=== PATIENT | female | born 1955 | race Caucasian/White ===

== ENCOUNTER → 2016-03-19 | Outpatient (CLI) | payer BC ==
[~2016-03-19] MED LIST: ACYC800T PO; APIX5TAB PO; ASP81CT PO; BUME2TAB3 PO; CARV3.122 PO; CEFU250T80 PO; CITA10TA7 PO; DOCU-143 PO; ESTR1TAB19 PO; FAMO20TA5 PO; FURO20TA4 PO; FURO40TA4 PO; HORMONE MED; LORA0.5T PO; MELA5CAP PO; MICA50VI IV; OMEP40CA36 PO; ONDA4TAB10 PO; PANT40TA3 PO; POSA100T PO; POTA-51 PO; POTA20TA15 PO; PROC-1 PO; PROC10TA PO; SENN-140 PO; SPIR25TA3 PO
--- OUTSIDE RECORDS SUMMARY | 2016-03-19 17:37 | XMS REPORT | Continuity of Care Document ---
Author Author [facility] Organization [facility] Address Unknown Phone Unavailable Care Team Providers Care Donation Worker Name Role Phone Anuradha Schulte PCP [phone] Source Comments Some departments are not documenting in the electronic medical record. If you do not see the information that you expected, contact Release of Information in the Health Information Management department at [phone] for further assistance in locating additional records.[facility] Active Allergies and Adverse Reactions Allergen Noted Date Severity Reactions Comments Clarithromycin 08/18/2015 Medium RASH Patient reports she was on Clarithro, tetracycline, flagyl for infectious colitis >1 year prior and developed a rash. Usure which antibiotic was the cause. Flagyl 08/18/2015 Medium RASH Patient reports she was on Clarithro, tetracycline, flagyl for infectious colitis >1 year prior and developed a rash. Usure which antibiotic was the cause. Tetracycline 08/18/2015 Medium RASH Patient reports she was on Clarithro, tetracycline, flagyl for infectious colitis >1 year prior and developed a rash. Usure which antibiotic was the cause. Triamcinolone 10/21/2015 Medium RASH Zosyn 09/13/2015 Medium RASH Pt developed a diffuse morbilliform rash on chest/abdomen/back/extrem ities (observed 08/30/15). It resolved following d/c of zosyn. Meropenem was tolerated without difficulty. Current Medications Prescription Sig. Disp. Refills Start End Date Status Date carvedilol (COREG) 3.125 Take 1 Tab by mouth twice 60 Tab 5 09/13/19 Active mg tablet daily. Take with food. [address] Take 1 Tab by mouth 30 Tab 3 09/13/19 Active (PROTONIX) 40 mg tablet daily. 16 LORazepam (ATIVAN) 0.5 mg Take 1 Tab by mouth at 30 Tab 0 10/10/19 Active tablet bedtime as needed for 16 Nausea. Indications: INSOMNIA prochlorperazine maleate Take 1 Tab by mouth every 30 Tab 0 10/10/19 Active (COMPAZINE) 10 mg tablet 6 hours as needed for 16 Nausea or Vomiting. acyclovir (ZOVIRAX) 800 Take 1 Tab by mouth twice 60 Tab 0 10/10/19 Active mg tablet daily. 16 cefuroxime (CEFTIN) 250 Take 1 Tab by mouth twice 60 Tab 0 10/10/19 Active mg tablet daily. 16 docusate (COLACE) 100 mg Take 1 Cap by mouth twice 180 Cap 3 10/10/19 Active capsule daily as needed for 16 Constipation. furosemide (LASIX) 40 mg Take 1 Tab by mouth 30 Tab 0 10/10/19 Active tablet daily. 16 melatonin 5 mg tab Take 1 Tab by mouth at 10/10/19 Active bedtime daily. 16 potassium chloride SR Take 2 Tabs by mouth 60 Cap 0 10/10/19 Active (K-DUR) 20 mEq tablet daily. Take with a meal 16 and a full glass of water. spironolactone Take 1 Tab by mouth 30 Tab 0 10/10/19 Active (ALDACTONE) 25 mg tablet daily. Indications: 16 CHRONIC HEART FAILURE micafungin (MYCAMINE) 50 Administer 50 mg through 11/02/19 Active mg/5 mL 50 mg in sodium vein daily. To be 16 chloride 0.9% (NS) 0.9 % administered via home 100 mL IVPB (MB+) health citalopram (CELEXA) 10 mg Take 0.5 Tabs by mouth 30 Tab 3 11/02/19 Active tablet daily. 16 Active Problems Problem Noted Date Hyponatremia 10/22/2015 Chronic systolic heart failure (HCC) 10/22/2015 Hypokalemia 10/22/2015 C. difficile colitis 10/22/2015 Diarrhea 10/10/2015 Bilateral lower extremity edema 09/25/2015 Insomnia 09/25/2015 Acute systolic heart failure (HCC) 09/22/2015 Acute pulmonary edema (HCC) 09/22/2015 Cardiac LV ejection fraction 21-40% 09/19/2015 Pancytopenia due to antineoplastic chemotherapy (HCC) 09/07/2015 Diffuse pulmonary alveolar hemorrhage 08/30/2015 HCAP (healthcare-associated pneumonia) 08/30/2015 Hypomagnesemia 08/26/2015 Rectal discomfort 08/24/2015 AML (acute myelogenous leukemia) ([facility]) 08/18/2015 GERD (gastroesophageal reflux disease) Resolved Problems Problem Noted Date Resolved Date Fever 10/22/2015 11/02/2015 Septic shock (HCC) 10/22/2015 11/02/2015 Vesicular rash 09/22/2015 10/10/2015 Sepsis (HCC) 09/21/2015 10/10/2015 Fever and neutropenia ([facility]) 09/07/2015 11/02/2015 Acute respiratory failure with hypoxemia ([facility]) 08/30/2015 10/10/2015 Hypophosphatemia 08/26/2015 10/10/2015 Hypokalemia 08/26/2015 10/10/2015 Dyspnea 08/26/2015 10/10/2015 Peripheral edema 08/21/2015 11/02/2015 SIRS (systemic inflammatory response syndrome) ([facility]) 08/19/2015 10/10/2015 Most Recent Encounters Date Type Specialty Providers Description 02/17/2016 Documentation Oncology Marie Ann, PHARMD Social History Tobacco Use Types Packs/Day Years Used Date Never Smoker Alcohol Use Drinks/Week oz/Week Comments No 0 Standard 0.0 drinks or equivalent Last Filed Vital Signs Vital Sign Reading Time Taken Blood Pressure 114/67 11/02/2015 11:29 AM CDT Pulse 95 11/02/2015 11:29 AM CDT Temperature 36.7 C (98 F) 11/02/2015 11:29 AM CDT Respiratory Rate 17 09/19/2015 11:33 AM CDT Height 1.676 m (5' 6") 10/31/2015 9:22 AM CDT Weight 78.926 kg (174 lb) 11/02/2015 3:23 AM CDT Body Mass Index 28.1 11/02/2015 3:23 AM CDT Oxygen Saturation 99% 11/02/2015 11:29 AM CDT Plan of Care Health Maintenance Due Date Last Done Comments Hepatitis C Screening 1955 Physical (Comprehensive) 07/16/1962 Exam Pertussis Vaccine 07/16/1966 Tetanus Vaccine 07/16/1972 Cervical Cancer Screening 07/16/1976 Breast Cancer Screening 1995 Colorectal Cancer 07/16/2005 Screening Shingles Vaccine 2015 Influenza Vaccine 10/20/2015 Results from Last 3 Months Not on file
[2016-03-19 17:52] LABS: BASOPHILS % (AUTO) 0 % (0-10); EOSINOPHILS # (AUTO) 0.1 10^3/uL (0.0-0.3); EOSINOPHILS % (AUTO) 3 % (0-10); LYMPHOCYTES # (AUTO) 0.5 X 10^3 (1.0-4.0); LYMPHOCYTES % (AUTO) 26 % (12-44); MEAN CORPUSCULAR HEMOGLOBIN 30 PG (25-34); MEAN CORPUSCULAR HGB CONC 32 G/DL (32-36); MEAN CORPUSCULAR VOLUME 95 FL (80-99); MEAN PLATELET VOLUME 10.2 FL (7.4-10.4); MONOCYTES # (AUTO) 0.3 X 10^3 (0.0-1.0); MONOCYTES % (AUTO) 16 % (0-12); NEUTROPHILS # (AUTO) 1.1 X 10^3 (1.8-7.8); NEUTROPHILS % (AUTO) 55 % (42-75); PLATELET COUNT 119 10^3/uL (130-400); RED BLOOD COUNT 3.44 10^6/uL (4.35-5.85); RED CELL DISTRIBUTION WIDTH 15.4 % (10.0-14.5); WHITE BLOOD COUNT 2.1 10^3/uL (4.3-11.0)
[2016-03-19 18:09] LABS: ANION GAP 9 MMOL/L (5-14); BLOOD UREA NITROGEN 12 MG/DL (7-18); BUN/CREATININE RATIO 14; CALCIUM 9.7 MG/DL (8.5-10.1); CARBON DIOXIDE 23 MMOL/L (21-32); CHLORIDE 108 MMOL/L (98-107); CREATININE SERUM 0.85 MG/DL (0.60-1.30); GFR ESTIMATED > 60; GLUCOSE 108 MG/DL (70-105); POTASSIUM 4.4 MMOL/L (3.6-5.0); SODIUM 140 MMOL/L (135-145)
== END ==
LOC: LAB 17:32
PROVIDERS: ATTEND Internal Medicine Cardiovascular Disease
DX: I50.22 Chronic systolic (congestive) heart failure (principal); I44.69 Other fascicular block; I42.0 Dilated cardiomyopathy; C92.00 Acute myeloblastic leukemia, not having achieved remission
CPT/HCPCS: 36415; 80048; 83735; 85025

== ENCOUNTER → 2016-03-26 | Outpatient (CLI) | payer BC ==
--- OUTSIDE RECORDS SUMMARY | 2016-03-26 14:50 | XMS REPORT | Continuity of Care Document ---
Author Author [facility] Organization [facility] Address Unknown Phone Unavailable Care Team Providers Care Practice Administrator Name Role Phone Anuradha Schulte PCP [phone] Source Comments Some departments are not documenting in the electronic medical record. If you do not see the information that you expected, contact Release of Information in the Health Information Management department at [phone] for further assistance in locating additional records.[facility] Active Allergies and Adverse Reactions Allergen Noted [...] Rectal discomfort 08/24/2015 AML (acute myelogenous leukemia) ([facility]) 08/18/2015 GERD (gastroesophageal reflux disease) Resolved Problems Problem Noted Date Resolved Date Fever 10/22/2015 11/02/2015 Septic shock (HCC) 10/22/2015 11/02/2015 Vesicular rash 09/22/2015 10/10/2015 Sepsis (HCC) 09/21/2015 10/10/2015 Fever and neutropenia ([facility]) 09/07/2015 11/02/2015 Acute respiratory failure with hypoxemia ([facility]) 08/30/2015 10/10/2015 Hypophosphatemia 08/26/2015 10/10/2015 Hypokalemia 08/26/2015 10/10/2015 Dyspnea 08/26/2015 10/10/2015 Peripheral edema 08/21/2015 11/02/2015 SIRS (systemic inflammatory response syndrome) ([facility]) 08/19/2015 10/10/2015 Most Recent Encounters Date Type [...]
--- NOTE | 2016-03-29 13:39 | ECHOCARDIOGRAPHY REPORT ---
PROCEDURE PHYSICIAN: CECILIA CARLOS DATE OF PROCEDURE: 03/26/2016 TWO DIMENSIONAL ECHOCARDIOGRAM REPORT PRIMARY PHYSICIAN: Dr. Schulte OTHER PHYSICIAN: REFERRING PHYSICIAN: ORDERING PHYSICIAN: Dr. Carlos INDICATION FOR THE PROCEDURE: Congestive heart failure, dilated cardiomyopathy, left bundle branch block MEASUREMENTS DERIVED VALUES LV DIAMETER (LAX) NORMALS NORMALS Diastolic 6.4 (3.6-5.2) Eject. Fract. (60%+/-6%) Systolic (2.3-3.9) Diastolic Vol. % Shortening (0.22-0.42) Systolic Vol. Aortic Root IVS THICKNESS Diastolic 1.1 (0.6-1.1) LVPW THICKNESS Diastolic 1.1 (0.6-1.1) LA DIAMETER Systolic 3.8 (2.1-3.7) DESCRIPTION: 2-dimensional echocardiography shows global hypokinesis of the left ventricle. Left ventricular ejection fraction is approximately 30%. Aortic, mitral and tricuspid valve leaflets show good leaflet excursion. There is no significant pericardial effusion. Doppler shows mild mitral and tricuspid regurgitation. No Doppler evidence of significant valvular stenosis. There is mild to moderate enlargement of the left ventricle. Pulmonary artery systolic pressure is estimated to be approximately 35 to 40 mmHg. No evidence of significant intracardiac shunt on this transthoracic echocardiographic study. Inferior vena cava appears mostly collapsed n this study. CONCLUSIONS: 1. Dilated cardiomyopathy with moderate enlargement of the left ventricle. Global hypokinesis of the left ventricular and left ventricular ejection fraction approximately 30%. 2. Mild mitral and tricuspid regurgitation. 3. Pulmonary artery systolic pressure is estimated 35 to 40 mmHg. 4. No evidence of significant valvular stenosis. Job ID: [id number] Dictated Date: 03/29/2016 10:55:00 Brim Pouncer Date: 03/29/2016 13:29:45 / devonte
== END ==
LOC: CARD 14:46
PROVIDERS: ATTEND Internal Medicine Cardiovascular Disease
DX: I50.22 Chronic systolic (congestive) heart failure (principal); I44.69 Other fascicular block; I42.0 Dilated cardiomyopathy; C92.00 Acute myeloblastic leukemia, not having achieved remission
CPT/HCPCS: 93306

== ENCOUNTER → 2016-04-24 | Outpatient (CLI) | payer BC ==
--- OUTSIDE RECORDS SUMMARY | 2016-04-24 13:54 | XMS REPORT | Continuity of Care Document ---
Author Author [facility] Organization [facility] Address Unknown Phone Unavailable Care Team Providers Care President And Chief Operating Officer Name Role Phone Anuradha Schulte PCP [phone] Source Comments Some departments are not documenting in the electronic medical record. If you do not see the information that you expected, contact Release of Information in the Health Information Management department at [phone] for further assistance in locating additional records.[facility] Active Allergies and Adverse Reactions Allergen [...] Rectal discomfort 08/24/2015 AML (acute myelogenous leukemia) ([facility]) 08/18/2015 GERD (gastroesophageal reflux disease) Resolved Problems Problem Noted Date Resolved Date Fever 10/22/2015 11/02/2015 Septic shock (HCC) 10/22/2015 11/02/2015 Vesicular rash 09/22/2015 10/10/2015 Sepsis (HCC) 09/21/2015 10/10/2015 Fever and neutropenia ([facility]) 09/07/2015 11/02/2015 Acute respiratory failure with hypoxemia ([facility]) 08/30/2015 10/10/2015 Hypophosphatemia 08/26/2015 10/10/2015 Hypokalemia 08/26/2015 10/10/2015 Dyspnea 08/26/2015 10/10/2015 Peripheral edema 08/21/2015 11/02/2015 SIRS (systemic inflammatory response syndrome) ([facility]) 08/19/2015 10/10/2015 Most Recent Encounters Date Type [...] 07/16/2005 Screening Shingles Vaccine 2015 Influenza Vaccine 10/19/2016 Results from Last 3 Months Not on file
[2016-04-24 14:24] LABS: ANION GAP 8 MMOL/L (5-14); BLOOD UREA NITROGEN 19 MG/DL (7-18); BUN/CREATININE RATIO 21; CALCIUM 9.1 MG/DL (8.5-10.1); CARBON DIOXIDE 26 MMOL/L (21-32); CHLORIDE 107 MMOL/L (98-107); CREATININE SERUM 0.91 MG/DL (0.60-1.30); GFR ESTIMATED > 60; GLUCOSE 97 MG/DL (70-105); MAGNESIUM 1.9 MG/DL (1.8-2.4); POTASSIUM 4.2 MMOL/L (3.6-5.0); SODIUM 141 MMOL/L (135-145)
== END ==
LOC: LAB 13:50
PROVIDERS: ATTEND Internal Medicine Cardiovascular Disease
DX: I50.22 Chronic systolic (congestive) heart failure (principal); C92.00 Acute myeloblastic leukemia, not having achieved remission; I42.0 Dilated cardiomyopathy
CPT/HCPCS: 36415; 80048; 83735

== ENCOUNTER → 2016-05-14 | Outpatient (CLI) | payer BC ==
[2016-05-14 15:54] LABS: CALCIUM 9.8 MG/DL (8.5-10.1); CREATININE SERUM 0.96 MG/DL (0.60-1.30); MAGNESIUM 2.1 MG/DL (1.8-2.4); POTASSIUM 4.3 MMOL/L (3.6-5.0)
== END ==
LOC: LAB 15:10
PROVIDERS: ATTEND Internal Medicine Cardiovascular Disease
DX: I50.22 Chronic systolic (congestive) heart failure (principal); I42.0 Dilated cardiomyopathy; I44.69 Other fascicular block; C92.00 Acute myeloblastic leukemia, not having achieved remission
CPT/HCPCS: 36415; 80048; 83735

== ENCOUNTER → 2016-06-29 | Outpatient (CLI) | payer BC ==
[2016-06-29 13:52] LABS: CALCIUM 9.9 MG/DL (8.5-10.1); CREATININE SERUM 1.12 MG/DL (0.60-1.30); MAGNESIUM 2.4 MG/DL (1.8-2.4); POTASSIUM 4.3 MMOL/L (3.6-5.0)
== END ==
LOC: LAB 13:22
PROVIDERS: ATTEND Internal Medicine Cardiovascular Disease
DX: I50.23 Acute on chronic systolic (congestive) heart failure (principal); I42.0 Dilated cardiomyopathy; I44.69 Other fascicular block; D61.810 Antineoplastic chemotherapy induced pancytopenia; C92.00 Acute myeloblastic leukemia, not having achieved remission
CPT/HCPCS: 36415; 80048; 83735

== ENCOUNTER 2016-07-14 19:47 | Inpatient (IN) | payer BC ==
[~2016-07-14] VITALS: Ht 167.6 cm; Wt 78.2 kg
[2016-07-14 20:12] LABS: BASOPHILS % (AUTO) 0 % (0-10); EOSINOPHILS % (AUTO) 1 % (0-10); LYMPHOCYTES # (AUTO) 0.9 X 10^3 (1.0-4.0); LYMPHOCYTES % (AUTO) 23 % (12-44); MEAN CORPUSCULAR HEMOGLOBIN 31 PG (25-34); MEAN CORPUSCULAR HGB CONC 32 G/DL (32-36); MEAN CORPUSCULAR VOLUME 96 FL (80-99); MEAN PLATELET VOLUME 11.5 FL (7.4-10.4); MONOCYTES # (AUTO) 0.6 X 10^3 (0.0-1.0); MONOCYTES % (AUTO) 17 % (0-12); NEUTROPHILS # (AUTO) 2.2 X 10^3 (1.8-7.8); NEUTROPHILS % (AUTO) 59 % (42-75); PLATELET COUNT 119 10^3/uL (130-400); RED BLOOD COUNT 4.24 10^6/uL (4.35-5.85); RED CELL DISTRIBUTION WIDTH 16.8 % (10.0-14.5); WHITE BLOOD COUNT 3.7 10^3/uL (4.3-11.0)
[2016-07-14] MEDS ORDERED: RT-ALBUTEROL/IPRATROPIUM 3 ML (DUONEB) VIAL INH ONE (20:15)
[2016-07-14] MEDS ORDERED: POTA-51 PO (20:18)
[2016-07-14] MEDS ORDERED: RIVA20TA PO (20:18)
[2016-07-14] MEDS ORDERED: CARV3.122 PO (20:18)
[2016-07-14] MEDS ORDERED: LORA0.5T PO (20:18)
[2016-07-14] MEDS ORDERED: ESZO1TAB10 PO (20:18)
[2016-07-14] MEDS ORDERED: LOSA25TA21 PO (20:18)
[2016-07-14] MEDS ORDERED: MAGN400C PO (20:18)
[2016-07-14] MEDS ORDERED: FURO20TA4 PO (20:18)
[2016-07-14 20:29] LABS: INR 1.8 (0.8-1.4); PROTHROMBIN TIME PATIENT 20.5 SEC (12.2-14.7)
--- NOTE | 2016-07-14 20:39 | ED Respiratory ---
General Chief Complaint: Respiratory Problems Stated Complaint: TROUBLE BREATHING Nursing Triage Note: AMB TO ED REPORTING TROUBLE BREATHING FOR 2 DAYS. SX WORSENED TODAY. HAS SEEN DR SCHULTE OFFICE . AND SAW DR CARLOS JULY 02. HX CHF Source: patient, family (daughter), spouse Exam Limitations: no limitations History of Present Illness Time seen by provider: 19:55 Initial Comments 60-year-old female patient presents to the emergency department complains of shortness of air beginning 2 days ago. Reports worse today. Was seen by Dr. Schulte on and Dr. Carlos on July 02. Does have a history of CHF and AML. Timing/Duration: getting worse, other (2 day onset) Prior Episodes/Possible Cause: occasional episodes Modifying Factors: Worse With Activity Allergies and Home Medications Allergies Coded Allergies: clarithromycin (Verified Allergy, Severe, HIVES, 01/12/16) tetracycline (Verified Allergy, Severe, HIVES, 01/12/16) triamcinolone (Verified Allergy, Unknown, 01/12/16) worsened rash Home Medications Carvedilol 3.125 Mg Tablet, 3.125 MG PO BID, (Reported) Eszopiclone 1 Mg Tablet, 1 MG PO HS, (Reported) Furosemide 20 Mg Tablet, 20 MG PO DAILY, (Reported) Lorazepam 0.5 Mg Tablet, 0.5-1 MG PO HS PRN for SLEEP/NAUSEA, (Reported) Lorazepam 0.5 Mg Tablet, 0.5 MG PO BID, (Reported) Losartan Potassium 25 Mg Tablet, 25 MG PO DAILY, (Reported) Magnesium Oxide 400 Mg Capsule, 400 MG PO BID, (Reported) Pantoprazole Sodium 40 Mg Tablet.dr, 40 MG PO DAILY, (Reported) Potassium Chloride 20 Meq Tablet.er, 20 MEQ PO DAILY, (Reported) Rivaroxaban 20 Mg Tablet, 20 MG PO DAILY, (Reported) Constitutional: No chills, No diaphoresis, No dizziness, No fever, No malaise, No weakness EENTM: no symptoms reported Respiratory: No cough, dyspnea on exertion, No orthopnea, No phlegm, short of breath, No stridor, No wheezing Cardiovascular: No chest pain, No edema, No palpitations, No syncope Gastrointestinal: No abdominal pain, No constipation, No diarrhea, No nausea, No vomiting Genitourinary: no symptoms reported Musculoskeletal: no symptoms reported Skin: no symptoms reported Psychiatric/Neurological: Anxiety (h/o anxiety.), Depressed (recent diagnosis of depression, but states she wont start the lexapro until she talks to dr carlos), Denies Headache, Denies Numbness, Denies Paresthesia, Denies Tingling, Denies Weakness All Other Systems Reviewed Negative Unless Noted: Yes (Negative excepted noted.) Past Wpawzqm-Wmrvge-Jididu Hx Patient Social History Alcohol Use: Denies Use Recreational Drug Use: No Smoking Status: Never a Smoker Recent Foreign Travel: No Contact w/Someone Who Travel: No Recent Infectious Disease Expo: No Recent Hopitalizations: No Immunizations Up To Date Tetanus Booster (TDap): Unknown Date of Influenza Vaccine: Nov 19, 2015 Seasonal Allergies Seasonal Allergies: No Surgeries HX Surgeries: Yes (COLONSCOPY, EGD; GUM SURGERY; BONE MARROW BIOPSY X 3; PICC LINE RIGHT ARM) Surgeries: Hysterectomy, Oophorectomy Respiratory Hx Respiratory Disorders: Yes (history of pulmonary hemorrhage) Respiratory Disorders: Pneumonia Cardiovascular Hx Cardiac Disorders: Yes (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) Cardiac Disorders: Cardiomyopathy Neurological Hx Neurological Disorders: No Reproductive System Hx Reproductive Disorders: No Genitourinary Hx Genitourinary Disorders: No Gastrointestinal Hx Gastrointestinal Disorders: Yes Gastrointestinal Disorders: Gastroesophageal Reflux Musculoskeletal Hx Musculoskeletal Disorders: No Endocrine Hx Endocrine Disorders: No HEENT HX ENT Disorders: No Cancer Hx Cancer: Yes (AML--DX 08/18/15) Cancer: Leukemia (AML) Psychosocial Hx Psychiatric Problems: Yes Behavioral Health Disorders: Sleep Difficulties, Depression Integumentary HX Skin/Integumentary Disorder: Yes Skin/Integumentary Disorders: Pruritis Blood Transfusions Hx Blood Disorders: No Reviewed Nursing Assessment Reviewed/Agree w Nursing PMH: Yes Family Medical History Significant Family History: No Pertinent Family Hx Family Medial History: CARDIOVASCULAR DISEASE 19 FATHER G8 BROTHER G8 BROTHER G8 BROTHER Cardiovascular disease 19 MOTHER Cataracts 19 MOTHER G8 SISTER Diabetes mellitus G8 BROTHER Hypertension 19 MOTHER MULTIPLE SCLEROSIS G8 SISTER Myocardial infarction 19 FATHER G8 BROTHER G8 BROTHER Physical Exam Vital Signs Vital Sign - Last 12Hours 07/14/16 19:50 Temp 97.9 Pulse 118 Resp 20 B/P (MAP) 113/83 Pulse Ox 97 O2 Delivery Room Air Capillary Refill : Less Than 3 Seconds General Appearance: WD/WN, mild distress (patient is anxious.) Eyes: Bilateral Eye EOMI, Bilateral Eye Normal Inspection, Bilateral Eye PERRL HEENT: PERRL/EOMI, pharynx normal Neck: supple, normal inspection Respiratory: lungs clear, no respiratory distress, decreased breath sounds ( right base.) Cardiovascular: normal peripheral pulses, no edema, no murmur, tachycardia Gastrointestinal: normal bowel sounds, non tender, soft, no organomegaly, no pulsatile mass, No distended Extremities: no pedal edema, normal capillary refill Neurologic/Psychiatric: alert, oriented x 3, other (patient is anxious.) Skin: normal color, warm/dry Progress/Results/Core Measures Results/Orders Lab Results Laboratory Tests Test 07/14/16 20:00 Range/Units White Blood Count 3.7 L 4.3-11.0 10^3/uL Red Blood Count 4.24 L 4.35-5.85 10^6/uL Hemoglobin 13.2 11.5-16.0 G/DL Hematocrit 41 35-52 % Mean Corpuscular Volume 96 80-99 FL Mean Corpuscular Hemoglobin 31 25-34 PG Mean Corpuscular Hemoglobin Concent 32 32-36 G/DL Red Cell Distribution Width 16.8 H 10.0-14.5 % Platelet Count 119 L 130-400 10^3/uL Mean Platelet Volume 11.5 H 7.4-10.4 FL Neutrophils (%) (Auto) 59 42-75 % Lymphocytes (%) (Auto) 23 12-44 % Monocytes (%) (Auto) 17 H 0-12 % Eosinophils (%) (Auto) 1 0-10 % Basophils (%) (Auto) 0 0-10 % Neutrophils # (Auto) 2.2 1.8-7.8 X 10^3 Lymphocytes # (Auto) 0.9 L 1.0-4.0 X 10^3 Monocytes # (Auto) 0.6 0.0-1.0 X 10^3 Eosinophils # (Auto) 0.0 0.0-0.3 10^3/uL Basophils # (Auto) 0.0 0.0-0.1 10^3/uL Prothrombin Time 20.5 H 12.2-14.7 SEC INR Comment 1.8 H 0.8-1.4 Activated Partial Thromboplast Time 27 24-35 SEC D-Dimer 2.07 H 0.00-0.49 UG/ML Sodium Level 139 135-145 MMOL/L Potassium Level 4.6 3.6-5.0 MMOL/L Chloride Level 107 98-107 MMOL/L Carbon Dioxide Level 21 21-32 MMOL/L Anion Gap 11 5-14 MMOL/L Blood Urea Nitrogen 27 H 7-18 MG/DL Creatinine 1.59 H 0.60-1.30 MG/DL Estimat Glomerular Filtration Rate 33 BUN/Creatinine Ratio 17 Glucose Level 147 H 70-105 MG/DL Calcium Level 9.4 8.5-10.1 MG/DL Magnesium Level 2.1 1.8-2.4 MG/DL Total Bilirubin 1.2 H 0.1-1.0 MG/DL Aspartate Amino Transf (AST/SGOT) 62 H 5-34 U/L Alanine Aminotransferase (ALT/SGPT) 101 H 0-55 U/L Alkaline Phosphatase 145 H 40-136 U/L Troponin I < 0.30 <0.30 NG/ML B-Type Natriuretic Peptide 3409.7 H <100.0 PG/ML Total Protein 6.1 L 6.4-8.2 G/DL Albumin 3.8 3.2-4.5 G/DL TSH Barnes Testing 2.35 0.35-4.94 UIU/ML My Orders Orders - KALLIE ADAME Saline Lock/Iv-Start (07/14/16 20:01) Ekg Tracing (07/14/16 20:01) Monitor-Rhythm Ecg Trace Only (07/14/16 20:01) BNP (07/14/16 20:01) Cbc With Automated Diff (07/14/16 20:01) Comprehensive Metabolic Panel (07/14/16 20:01) Magnesium (07/14/16 20:01) Protime With Inr (07/14/16 20:01) Partial Thromboplastin Time (07/14/16 20:01) Thyroid Analyzer (07/14/16 20:01) Troponin I (07/14/16 20:01) Chest 1 View, Ap/Pa Only (07/14/16 20:01) Albuterol/Ipra Inhalation Soln (Duoneb I (07/14/16 20:15) Svn Sm Volume Nebulizer Rt-Rfs (07/14/16 20:01) Fibrin Degradation Products (07/14/16 20:19) Medications Given in ED Current Medications Medications Dose Ordered Sig/Abbey Route Start Time Stop Time Status Last Admin Dose Admin Albuterol/ Ipratropium 3 ml ONCE ONCE INH 07/14/16 20:15 07/14/16 20:16 DC 07/14/16 20:41 3 ML Vital Signs/I&O Vital Sign - Last 12Hours 07/14/16 07/14/16 19:50 20:26 Temp 97.9 Pulse 118 Resp 20 B/P (MAP) 113/83 Pulse Ox 97 95 O2 Delivery Room Air Blood Pressure Mean: 93 ECG Initial ECG Impression Date: July 14, 2016 Initial ECG Impression Time: 19:55 Initial ECG Rate: 106 Initial ECG Rhythm: S.Tach Initial ECG Comparisson: Changed Comment Sinus tachycardia with left bundle branch block. No STEMI or arrhythmia noted. EKG reviewed and discussed with Dr. Burris. Diagnostic Imaging Diagonstic Imaging: Xray Plain Films/CT/US/NM/MRI: chest Comments CHEST 1 VIEW, AP/PA ONLY INDICATION: Congestive heart failure, shortness of air. COMPARISON STUDY: Chest from 01/17/16. FINDINGS: A portable upright view of the chest demonstrates the heart size at the upper limits of normal. Mild pulmonary congestion and a small right pleural effusion are present. IMPRESSION : There is mild congestive heart failure. Dictated on workstation # [id number] Reviewed: Reviewed by Me (radiology report reviewed by me) Departure Communication Time/Spoke to Admitting Phy: 23:[address] Hampton graciously excepts patient to her internal medicine service for IV hydration, IV Lasix, ultrasound of the bilateral lower extremities in a.m., and further evaluation/management. Progress Notes All laboratory findings, diagnostic study findings, and plan for admission discussed with the patient and family. Patient reports minimal improvement with the DuoNeb treatment. Patient is noted to have an elevated d-dimer, however due to renal function patient is unable to have a CT angio chest at this time. Plan for admission for IV hydration, ultrasound bilateral lower extremities in a.m., and possible CT angio chest if renal function improves. Itching case and plan for admission discussed with Dr. Burris, he agrees with the plan of care. Impression Impression: Primary Impression: Acute exacerbation of CHF (congestive heart failure) Additional Impressions: Renal insufficiency Elevated liver enzymes history of AML Disposition: ADMITTED INPATIENT Condition: Stable Decision to Admit Reason: Admit from ER (General) Decision to Admit/Date: July 14, 2016 Time/Decision to Admit Time: 23:30 Departure-Patient Inst. Referrals: WHITNEY SCHULTE MD (PCP/Family) Primary Care Physician KALLIE ADAME July 14, 2016 20:39
--- NOTE | 2016-07-14 20:40 | Diagnostic Imaging Report ---
INDICATION: Congestive heart failure, shortness of air. COMPARISON STUDY: Chest from 01/17/16. FINDINGS: A portable upright view of the chest demonstrates the heart size at the upper limits of normal. Mild pulmonary congestion and a small right pleural effusion are present. IMPRESSION: There is mild congestive heart failure. Dictated by: Dictated on workstation # [id number]
[2016-07-14 20:45] LABS: ALANINE AMINOTRANSFERASE 101 U/L (0-55); ALBUMIN 3.8 G/DL (3.2-4.5); ANION GAP 11 MMOL/L (5-14); ASPARTATE AMINO TRANSFERASE 62 U/L (5-34); BILIRUBIN,TOTAL 1.2 MG/DL (0.1-1.0); BLOOD UREA NITROGEN 27 MG/DL (7-18); BUN/CREATININE RATIO 17; CALCIUM 9.4 MG/DL (8.5-10.1); CARBON DIOXIDE 21 MMOL/L (21-32); CHLORIDE 107 MMOL/L (98-107); CREATININE SERUM 1.59 MG/DL (0.60-1.30); GFR ESTIMATED 33; GLUCOSE 147 MG/DL (70-105); MAGNESIUM 2.1 MG/DL (1.8-2.4); POTASSIUM 4.6 MMOL/L (3.6-5.0); SODIUM 139 MMOL/L (135-145); TOTAL PROTEIN 6.1 G/DL (6.4-8.2)
[2016-07-14 21:05] LABS: TROPONIN I < 0.30 NG/ML (<0.30)
[2016-07-15] MEDS ORDERED: NS W/KCL 20 MEQ/L 1,000 ML IV ONE (00:28)
[2016-07-15] MEDS ORDERED: ACETAMINOPHEN 325 MG TABLET/CAPLET (TYLENOL) PO PRN (00:45)
[2016-07-15] MEDS ORDERED: CATHETER FLUSH 10 ML SYR IV PRN (00:45)
[2016-07-15] MEDS ORDERED: ONDANSETRON 4 MG/2 ML (SDV) Z0FRAN IV PRN (00:45)
[2016-07-15] MEDS: LORazepam INJ 2 MG/ML (ATIVAN) VIAL IV PRN (02:39)
[2016-07-15 04:00] VITALS: BP 93/70
[2016-07-15] MEDS: FUROSEMIDE 40 MG/4 ML INJ (LASIX) IV SCH ×2 (06:04→18:16)
[2016-07-15] MEDS: CATHETER FLUSH 10 ML SYR IV SCH ×3 (06:05→20:52)
[2016-07-15 06:11] VITALS: BP 99/77
[2016-07-15 06:53] LABS: BASOPHILS % (AUTO) 0 % (0-10); EOSINOPHILS % (AUTO) 1 % (0-10); LYMPHOCYTES # (AUTO) 1.2 X 10^3 (1.0-4.0); LYMPHOCYTES % (AUTO) 27 % (12-44); MEAN CORPUSCULAR HEMOGLOBIN 32 PG (25-34); MEAN CORPUSCULAR HGB CONC 32 G/DL (32-36); MEAN CORPUSCULAR VOLUME 97 FL (80-99); MEAN PLATELET VOLUME 11.7 FL (7.4-10.4); MONOCYTES # (AUTO) 0.8 X 10^3 (0.0-1.0); MONOCYTES % (AUTO) 19 % (0-12); NEUTROPHILS # (AUTO) 2.2 X 10^3 (1.8-7.8); NEUTROPHILS % (AUTO) 53 % (42-75); PLATELET COUNT 112 10^3/uL (130-400); RED BLOOD COUNT 4.26 10^6/uL (4.35-5.85); RED CELL DISTRIBUTION WIDTH 17.2 % (10.0-14.5); WHITE BLOOD COUNT 4.3 10^3/uL (4.3-11.0)
[2016-07-15 07:13] LABS: ALBUMIN 3.7 G/DL (3.2-4.5); CALCIUM 9.2 MG/DL (8.5-10.1); CREATININE SERUM 1.44 MG/DL (0.60-1.30); POTASSIUM 4.1 MMOL/L (3.6-5.0); TOTAL PROTEIN 5.9 G/DL (6.4-8.2)
[2016-07-15 08:00] VITALS: BP 111/81
[2016-07-15] MEDS ORDERED: LORazepam 0.5 MG (ATIVAN) TABLET PO PRN (08:30)
[2016-07-15] MEDS: NS W/KCL 20 MEQ/L 1,000 ML IV SCH ×2 (09:01→09:08)
--- NOTE | 2016-07-15 09:17 | History & Physical-Hospitalist ---
HPI History of Present Illness: HPI/Chief Complaint Pt is a 60yoCF with PMH of AML, DVT, and chemo induced cardiomyopathy who presented to the ER with CC of SOB. She states a few weeks ago she was having similar symptoms and her fpga engineer Dr Carlos increased her Lasix to 40mg BID which provided her relief. She then weaned herself off as her symptoms improved. Yesterday she began to feel SOB and nauseated so she took her increased dose of lasix without relief prompting her to seek evaluation in the ER. She was satting well on RA on arrival but had and elevated BNP and increased creatinine. She was admitted for acute CHF exacerbation. Source: patient, family Exam Limitations: no limitations Date Seen 07/15/16 Attending Physician Lisseth Briones Lisa A MD Referring Physician Date of Admission July 14, 2016 at 23:10 Home Medications & Allergies Home Medications Reviewed patient Home Medication Reconciliation Form Allergies Allergies Coded Allergies clarithromycin (Verified Allergy, Severe, HIVES, 01/12/16) tetracycline (Verified Allergy, Severe, HIVES, 01/12/16) triamcinolone (Verified Allergy, Unknown, 01/12/16) worsened rash Past Onbstak-Teetvz-Zottgz Hx Patient Social History Marrital Status: Employed/Student: retired Alcohol Use: Denies Use Recreational Drug Use: No Smoking Status: Never a Smoker Physical Abuse Screen: No Sexual Abuse: No Recent Foreign Travel: No Contact w/other who traveled: No Recent Hopitalizations: No Recent Infectious Disease Expo: No Immunizations Up To Date Tetanus Booster (TDap): Unknown Date of Influenza Vaccine: Nov 19, 2015 Seasonal Allergies Seasonal Allergies: No Surgeries HX Surgeries: Yes (COLONSCOPY, EGD; GUM SURGERY; BONE MARROW BIOPSY X 3; PICC LINE RIGHT ARM) Surgeries: Hysterectomy (2/2 fibroids), Oophorectomy Respiratory Hx Respiratory Disorders: Yes (history of pulmonary hemorrhage) Cardiovascular Hx Cardiovascular Disorders: Yes (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) Cardiac Disorders: Cardiomyopathy (chemotherapy induced), Deep Vein Thrombosis Neurological Hx Neurological Disorders: No Reproductive System : No Hx Reproductive Disorders: No Sexually Transmitted Disease: No HIV/AIDS: No 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 Genitourinary Hx Genitourinary Disorders: No Gastrointestinal Hx Gastrointestinal Disorders: Yes Gastrointestinal Disorders: Gastroesophageal Reflux Musculoskeletal Hx Musculoskeletal Disorders: No Endocrine Hx Endocrine Disorders: No HEENT HX ENT Disorders: No Loss of Vision: Denies Hearing Impairment: Denies Cancer Hx Cancer: Yes (AML--DX 08/18/15) Cancer: Leukemia (AML) Psychosocial Hx Psychiatric Problems: Yes Behavioral Health Disorders: Sleep Difficulties, Anxiety, Depression Integumentary HX Skin/Integumentary Disorder: Yes Skin/Integumentary Disorders: Pruritis Blood Transfusions Hx Blood Disorders: No Adverse Reaction to a Blood Tr: No Reviewed Nursing Assessment Reviewed/Agree w Nursing PMH: Yes Family Medical History Significant Family History: Heart Disease (mother, father, brother) Family Hx: CARDIOVASCULAR DISEASE 19 FATHER G8 BROTHER G8 BROTHER G8 BROTHER Cardiovascular disease 19 MOTHER Cataracts 19 MOTHER G8 SISTER Diabetes mellitus G8 BROTHER Hypertension 19 MOTHER MULTIPLE SCLEROSIS G8 SISTER Myocardial infarction 19 FATHER G8 BROTHER G8 BROTHER Review of Systems Constitutional: No chills, No fever, weight gain (4lbs) EENTM: No blurred vision, No double vision Respiratory: cough, dyspnea on exertion, No phlegm, short of breath, No wheezing Cardiovascular: No chest pain, No palpitations Gastrointestinal: No abdominal pain, No constipation, No diarrhea, nausea, No vomiting Genitourinary: frequency Musculoskeletal: no symptoms reported Skin: no symptoms reported Psychiatric/Neurological: Anxiety Physical Exam Physical Exam Vital Signs Vital Sign - Last 12Hours 07/14/16 19:50 Temp 97.9 Pulse 118 Resp 20 B/P (MAP) 113/83 Pulse Ox 97 O2 Delivery Room Air Capillary Refill : Less Than 3 Seconds General Appearance: No Apparent Distress, WD/WN HEENT: PERRL/EOMI Neck: Normal Inspection, No JVD Respiratory: Chest Non Tender, No Accessory Muscle Use, No Respiratory Distress , Crackles (faint in bases) Cardiovascular: Regular Rate, Rhythm, No JVD, No Murmur, Normal Peripheral Pulses Gastrointestinal: Normal Bowel Sounds, Non Tender, Soft Extremity: No Calf Tenderness, Pedal Edema (trace) Neurologic/Psychiatric: Alert, Oriented x3, Normal Mood/Affect Skin: Normal Color, Warm/Dry Results Results/Procedures Lab Laboratory Tests 07/14/16 20:00 07/15/16 05:45 Radiology FINDINGS: A portable upright view of the chest demonstrates the heart size at the upper limits of normal. Mild pulmonary congestion and a small right pleural effusion are present. IMPRESSION: There is mild congestive heart failure. Assessment/Plan Admission Diagnosis Acute decompensated systolic CHF Assessment and Plan A/P Acute decompensated CHF, NYHA nonischemic cardiomyopathy - Continue IV lasix - Monitor I/Os - Monitor oxygen saturation with goal >90% - Limit fluid intake to 2l/day. salt 2g/day - Resume metoprolol and Losartan - Monitor electrolytes CHERRI - Improved today but still above baseline - Trend, likely with improve with diuresis and fluid shift - DC IVF Transaminitis - Likely due to intravascular depletion - Trend AML - Reports in remission as of last visit in December - CBC stable h/o DVT - Continue on Xarelto - await read of usg of BLE Dispo: Continue admission of diuresis with IV lasix. Corby Mendez MD Clinical Quality Measures DVT/VTE Risk/Contraindication: Risk Factor Score Per Nursin RFS Level Per Nursing on Admit: 4+=Very High CORBY MENDEZ MD July 15, 2016 09:17
[2016-07-15] MEDS: PANTOPRAZOLE 40 MG (PROTONIX) TAB PO SCH (09:20)
[2016-07-15] MEDS: LORazepam 0.5 MG (ATIVAN) TABLET PO SCH ×2 (09:20→20:42)
[2016-07-15] MEDS: LOSARTAN 25 MG (COZAAR) TAB PO SCH (09:20)
[2016-07-15] MEDS: RIVAROXABAN 20 MG TABLET (XARELTO) PO SCH (09:20)
[2016-07-15] MEDS: CARVEDILOL 3.125 MG (COREG) TABLET PO SCH ×2 (09:20→20:42)
--- NOTE | 2016-07-15 10:01 | Diagnostic Imaging Report ---
INDICATION: Swelling, pain. FINDINGS: The femoral popliteal deep venous system bilaterally widely patent. No deep or superficial thrombus. Vascular compressibility, color Doppler flow and pulsatility appeared unremarkable. No mass or fluid collection demonstrated. IMPRESSION: Normal negative bilateral lower extremity venous Doppler and ultrasound exam. Dictated by: Dictated on workstation # [id number]
[2016-07-15 12:00] VITALS: BP 143/76
[2016-07-15 15:52] VITALS: BP 102/73
[2016-07-15 19:38] VITALS: BP 114/84
[2016-07-16] VITALS: BP 108/71
[2016-07-16] MEDS: LORazepam INJ 2 MG/ML (ATIVAN) VIAL IV PRN (01:46)
[2016-07-16 04:00] VITALS: BP 97/60
[2016-07-16 05:29] LABS: BASOPHILS % (AUTO) 0 % (0-10); EOSINOPHILS % (AUTO) 1 % (0-10); LYMPHOCYTES % (AUTO) 28 % (12-44); MEAN CORPUSCULAR HEMOGLOBIN 31 PG (25-34); MEAN CORPUSCULAR HGB CONC 33 G/DL (32-36); MEAN CORPUSCULAR VOLUME 95 FL (80-99); MEAN PLATELET VOLUME 11.6 FL (7.4-10.4); MONOCYTES # (AUTO) 0.6 X 10^3 (0.0-1.0); MONOCYTES % (AUTO) 17 % (0-12); NEUTROPHILS % (AUTO) 55 % (42-75); PLATELET COUNT 104 10^3/uL (130-400); RED BLOOD COUNT 4.12 10^6/uL (4.35-5.85); RED CELL DISTRIBUTION WIDTH 16.9 % (10.0-14.5); WHITE BLOOD COUNT 3.6 10^3/uL (4.3-11.0)
[2016-07-16 05:52] LABS: ALBUMIN 3.6 G/DL (3.2-4.5); BILIRUBIN,TOTAL 1.1 MG/DL (0.1-1.0); CREATININE SERUM 1.19 MG/DL (0.60-1.30); POTASSIUM 3.6 MMOL/L (3.6-5.0); TOTAL PROTEIN 5.5 G/DL (6.4-8.2)
[2016-07-16] MEDS: CATHETER FLUSH 10 ML SYR IV SCH (06:29)
[2016-07-16] MEDS: FUROSEMIDE 40 MG/4 ML INJ (LASIX) IV SCH (06:29)
[2016-07-16] MEDS ORDERED: KCL 20 MEQ TAB (K-DUR) PO SCH (07:00)
[2016-07-16 07:34] VITALS: BP 92/59
[2016-07-16] MEDS: RIVAROXABAN 20 MG TABLET (XARELTO) PO SCH (08:30)
[2016-07-16] MEDS: LOSARTAN 25 MG (COZAAR) TAB PO SCH (08:30)
[2016-07-16] MEDS: CARVEDILOL 3.125 MG (COREG) TABLET PO SCH (08:30)
[2016-07-16] MEDS: LORazepam 0.5 MG (ATIVAN) TABLET PO SCH (08:30)
[2016-07-16] MEDS: PANTOPRAZOLE 40 MG (PROTONIX) TAB PO SCH (08:30)
--- NOTE | 2016-07-16 10:23 | Progress Note-Hospitalist ---
Progress Note HPI/CC on Admission Pt is a 60yoCF with PMH of AML, DVT, and chemo induced cardiomyopathy who presented to the ER with CC of SOB. She states a few weeks ago she was having similar symptoms and her dental ceramist assistant Dr Carlos increased her Lasix to 40mg BID which provided her relief. She then weaned herself off as her symptoms improved. Yesterday she began to feel SOB and nauseated so she took her increased dose of lasix without relief prompting her to seek evaluation in the ER. She was satting well on RA on arrival but had and elevated BNP and increased creatinine. She was admitted for acute CHF exacerbation. Progress Notes/Assess & Plan Date Seen 07/16/16 Diagonsis/Assessment & Plan Patient doing much better and wants to go home Today is her birthday Ejection fraction is usually 2530 percent and all chemotherapy cannot be initiated until that improves Having no shortness of breath at all today and will have cardiology review discharge meds and then discharge okay with cardiology Bowels are moving No fever, vital signs stable, pleasant, chronically ill Regular rate and rhythm, clear to auscultation bilaterally No edema Laboratory Tests 07/16/16 05:08 A/P Acute decompensated CHF, NYHA nonischemic cardiomyopathy - Continue IV lasix - Monitor I/Os - Monitor oxygen saturation with goal >90% - Limit fluid intake to 2l/day. salt 2g/day - Resume metoprolol and Losartan - Monitor electrolytes -Consult Cardiology today to review DC med list CHERRI - Improved today Transaminitis - Likely due to volume overload and hepatic congestion - Trend is monitored AML - Reports in remission as of last visit in December - CBC stable h/o DVT - Continue on Xarelto - Negative USG venous doppler Dispo: Continue admission of diuresis with IV lasix. Consult GRAEME Thornton DO July 16, 2016 10:23
[2016-07-16 11:31] VITALS: BP 109/77
[2016-07-16] MEDS ORDERED: FURO-124 PO (11:33)
--- NOTE | 2016-07-16 11:35 | Discharge Summary-Hospitalist ---
Diagnosis/Chief Complaint Date of Admission July 14, 2016 at 23:10 Date of Discharge Discharge Date: July 16, 2016 Admission Diagnosis Acute decompensated systolic CHF Discharge Diagnosis A/P Acute decompensated CHF, NYHA nonischemic cardiomyopathy - Continue IV lasix - Monitor I/Os - Monitor oxygen saturation with goal >90% - Limit fluid intake to 2l/day. salt 2g/day - Resume metoprolol and Losartan - Monitor electrolytes -Consult Cardiology today to review DC med list CHERRI - Improved today Transaminitis - Likely due to volume overload and hepatic congestion - Trend is monitored AML - Reports in remission as of last visit in December - CBC stable h/o DVT - Continue on Xarelto - Negative USG venous doppler Dispo: Continue admission of diuresis with IV lasix. Consult Dr Barton Reason Hospital Visit/Course Pt is a 60yoCF with PMH of AML, DVT, and chemo induced cardiomyopathy who presented to the ER with CC of SOB. She states a few weeks ago she was having similar symptoms and her chromium plater Dr Carlos increased her Lasix to 40mg BID which provided her relief. She then weaned herself off as her symptoms improved. Yesterday she began to feel SOB and nauseated so she took her increased dose of lasix without relief prompting her to seek evaluation in the ER. She was satting well on RA on arrival but had and elevated BNP and increased creatinine. She was admitted for acute CHF exacerbation. Patient doing much better and wants to go home Today is her birthday Ejection fraction is usually 2530 percent and all chemotherapy cannot be initiated until that improves Having no shortness of breath at all today and will have cardiology review discharge meds and then discharge okay with cardiology Bowels are moving No fever, vital signs stable, pleasant, chronically ill Regular rate and rhythm, clear to auscultation bilaterally No edema Laboratory Tests 07/16/16 05:08 A/P Acute decompensated CHF, NYHA nonischemic cardiomyopathy - Continue IV lasix - Monitor I/Os - Monitor oxygen saturation with goal >90% - Limit fluid intake to 2l/day. salt 2g/day - Resume metoprolol and Losartan - Monitor electrolytes -Consult Cardiology today to review DC med list CHERRI - Improved today Transaminitis - Likely due to volume overload and hepatic congestion - Trend is monitored AML - Reports in remission as of last visit in December - CBC stable h/o DVT - Continue on Xarelto - Negative USG venous doppler Dispo: Continue admission of diuresis with IV lasix. Consult Dr Barton Hospital course: Patient had an uneventful in brief hospital course she diuresed well with IV Lasix and supportive treatment with oxygen and improved a great deal enough for her labs to return back to normal especially creatinine and overall felt well enough to go home. I did have cardiology evaluate the discharge meds due to congestive heart failure of 25-30 percent ejection fraction and all was in place per protocol to prevent further hospitalizations and to meet quality majors and patient will have close follow-up with her chromium plater and primary care provider. Discharge Summary Discharge Physical Examination Allergies: Coded Allergies: clarithromycin (Verified Allergy, Severe, HIVES, 01/12/16) tetracycline (Verified Allergy, Severe, HIVES, 01/12/16) triamcinolone (Verified Allergy, Unknown, 01/12/16) worsened rash Vitals & I&Os Vital Signs Date Time Temp Pulse Resp B/P (MAP) Pulse Ox O2 Delivery O2 Flow Rate FiO2 07/16/16 14:10 94 20 109/77 93 07/16/16 11:31 97.6 07/14/16 19:50 Room Air Hospital Course Labs (last 24 hrs) Pending Labs Discharge Home Medications: Active Scripts Active Lasix (Furosemide) 40 Mg Tablet 40 Mg PO DAILY Reported Xarelto (Rivaroxaban) 20 Mg Tablet 20 Mg PO DAILY Carvedilol 3.125 Mg Tablet 3.125 Mg PO BID Losartan Potassium 25 Mg Tablet 25 Mg PO DAILY Magnesium (Magnesium Oxide) 400 Mg Capsule 400 Mg PO BID Potassium Chloride 20 Meq Tablet.er 20 Meq PO DAILY Lorazepam 0.5 Mg Tablet 0.5 Mg PO BID Lunesta (Eszopiclone) 1 Mg Tablet 1 Mg PO HS Lorazepam 0.5 Mg Tablet 0.5-1 Mg PO HS PRN Pantoprazole Sodium 40 Mg Tablet. 40 Mg PO DAILY Instructions to patient/family Please see electonic discharge instructions given to patient. Clinical Quality Measures DVT/VTE Risk/Contraindication: Risk Factor Score Per Nursin RFS Level Per Nursing on Admit: 4+=Very High GRAEME FOSTER DO July 16, 2016 11:35
--- NOTE | 2016-07-16 13:48 | Consultation-Cardiology ---
HPI-Cardiology Cardiology Consultation: Date of Consultation 07/16/16 Date of Admission Attending Physician Lisseth Foster DO Admitting Physician Anuradha Schulte MD Consulting Physician Dawit BARTON MD HPI: Chief Complaint: shortness of breath this is a pleasant 61-year-old lady who is a patient of Dr. Carlos. She presented with shortness of breath. She has history of AML and chemotherapy- induced nonischemic cardiomyopathy. Previous ejection fraction was 20-30 percent. She is on Lasix at home and uses it when necessary based on her symptoms. Apparently yesterday she started to have more shortness of breath which did not respond to Lasix therefore she decided to come to the emergency room. She was given Lasix. Overnight she has done well. On my interview she is not complaining of any shortness of breath. She also denies other cardiac symptoms. Review of Systems-Cardiology Review of Systems Constitutional: No As described under HPI, No no symptoms reported, No chills, No fever, No lightheadedness, No malaise, No tiredness, No weight loss, No weight gain, No other Eyes: No As described under HPI, No no symptoms reported, No blindness, No blurred vision, No contact lenses, No drainage, No decreased acuity, No foreign body sensation, No glasses, No inflammation, No pain, No photophobia, No previous injury, No shadows, No tunnel vision, No other, No vision change Ears/Nose/Throat: No As described under HPI, No no symptoms reported, No chronic hearing loss, No epistaxis, No ear discharge, No ear pain, No loose teeth, No mouth pain, No mouth swelling, No nasal drainage, No nose pain, No recent hearing loss, No throat pain, No throat swelling, No ulcerations, No other Respiratory: shortness of breath Cardiovascular: No no symptoms reported, No As described under HPI, No chest pain, No edema, No irregular heart rate, No lightheadedness, No palpitations, No syncope, No other Gastrointestinal: No no symptoms reported, No As described under HPI, No abdomen distended, No abdominal pain, No blood streaked bowels, No constipation , No diarrhea, No difficulty swallowing, No nausea, No poor appetite, No poor fluid intake, No rectal bleeding, No vomiting, No other, No nausea/vomiting/ diarrhea, No stool coloration changes Genitourinary: No no symptoms reported, No As described under HPI, No burning, No dysuria, No discharge, No frequency, No flank pain, No hematuria, No incontinence, No pain, No urgency, No other, No urine frequency changes, No urine coloration changes Musculoskeletal: No no symptoms reported, No As describe under HPI, No back pain, No gout, No joint pain, No joint swelling, No muscle pain, No muscle stiffness, No neck pain, No other Skin: No no symptoms reported, No As described under HPI, No change in color, No change in hair/nails, No dryness, No lesions, No lumps, No rash, No other, No skin related problems, No ulcerations, No rash on exposed areas, No ulcerations on exposed areas Psychiatric/Neurological: No As described under HPI, No anxiety, No depression , No emotional problems, No focal weakness, No headache, No no symptoms reported , No numbness, No other, No pre-existing deficit, No seizure, No syncope, No tingling, No tremors, No weakness All Other Systems Reviewed Negative Unless Noted: Yes (Negative excepted noted.) [id number] Hx Patient Social History Marrital Status: Employed/Student: retired Alcohol Use: Denies Use Recreational Drug Use: No Smoking Status: Never a Smoker Recent Foreign Travel: No Recent Infectious Disease Expo: No Hospitalization with Isolation: Denies Physical Abuse Screen: No Sexual Abuse: No Immunizations Up To Date Tetanus Booster (TDap): Unknown Date of Influenza Vaccine: Nov 19, 2015 Past Medical History PMH As described under Assessment. Family Medical History Family History: CARDIOVASCULAR DISEASE 19 FATHER G8 BROTHER G8 BROTHER G8 BROTHER Cardiovascular disease 19 MOTHER Cataracts 19 MOTHER G8 SISTER Diabetes mellitus G8 BROTHER Hypertension 19 MOTHER MULTIPLE SCLEROSIS G8 SISTER Myocardial infarction 19 FATHER G8 BROTHER G8 BROTHER Allergies and Home Medications Allergies Coded Allergies: clarithromycin (Verified Allergy, Severe, HIVES, 01/12/16) tetracycline (Verified Allergy, Severe, HIVES, 01/12/16) triamcinolone (Verified Allergy, Unknown, 01/12/16) worsened rash Home Medications Carvedilol 3.125 Mg Tablet, 3.125 MG PO BID, (Reported) Eszopiclone 1 Mg Tablet, 1 MG PO HS, (Reported) Furosemide 40 Mg Tablet, 40 MG PO DAILY, #30 Prescribed by: LISSETH FOSTER on 07/16/16 1133 Lorazepam 0.5 Mg Tablet, 0.5-1 MG PO HS PRN for SLEEP/NAUSEA, (Reported) Lorazepam 0.5 Mg Tablet, 0.5 MG PO BID, (Reported) Losartan Potassium 25 Mg Tablet, 25 MG PO DAILY, (Reported) Magnesium Oxide 400 Mg Capsule, 400 MG PO BID, (Reported) Pantoprazole Sodium 40 Mg Tablet.dr, 40 MG PO DAILY, (Reported) Potassium Chloride 20 Meq Tablet.er, 20 MEQ PO DAILY, (Reported) Rivaroxaban 20 Mg Tablet, 20 MG PO DAILY, (Reported) Physical Exam-Cardiology Physical Exam Vital Signs/I&O Vital Sign - Last 12Hours 07/16/16 07/16/16 07/16/16 07/16/16 04:00 07:00 07:34 11:31 Temp 97.6 97.5 97.6 Pulse 100 109 99 101 Resp 16 20 20 B/P (MAP) 97/60 92/59 109/77 Pulse Ox 96 92 93 07/16/16 13:00 Pulse 94 Intake and Output 07/16/16 00:00 Intake Total 1592 ml Output Total 2800 ml Balance -1208 ml Capillary Refill : Less Than 3 Seconds Constitutional: No appears stated age, No AAO x 3, No apparent distress, No PERRL, No well-developed, No well-nourished, No other HEENT: No PERRL, No normal ENT inspection, No TMs normal, No pharynx normal, No scleral icterus (R), No scleral icterus (L), No pale conjunctivae (R), No pale conjunctivae (L), No photophobia, No TM abnormal (R), No TM abnormal (L), No pharyngeal erythema, No tonsillar exudate, No other, No discharge, No EOMI, No hearing is well preserved, No hard of hearing, No oral hygience is good, No ulceration, No xanthelasmas are seen Neck: No non-tender, No full range of motion, No supple, No normal inspection, No carotid bruit, No limited range of motion, No lymphadenopathy (R), No lymphadenopathy (L), No tender lateral, No tender midline, No thyromegaly, No other, No carotid pulses are 2 + bilaterally, No with good upstrokes Respiratory: No accessory muscle use, No respiratory distress, No chest tender , chest expansion is symmetric, chest is bilaterally symmetric, lungs clear to percussion, lungs clear to auscultation, No crackles, No rhonchi, No rales, No stridor, No wheezing, No pleural rub, No other Cardiovascular: regular rate-rhythm, No irregularly irregular, No extra beats, No parasternal heave is noted, No JVD, No edema, No bradycardia, No tachycardia , No point of maximal impulse, No cardiac thrills are palpable, S1 and S2, No gallop/S3, No gallop/S4, No diastolic murmur, No systolic murmur, No friction rub, No click, No other Gastrointestinal: No tender, No soft, No round, No distended, No pulsatile mass , No organomegaly, No guarding, No rebound, No tenderness, No hernia, No mass, No audible bowel sounds, No abnormal bowel sounds, No abdominal bruits, No spleenomegaly, No other Rectal: deferred Extremities: No normal range of motion, No non-tender, No normal inspection, No pedal edema, No calf tenderness, No normal capillary refill, No pelvis stable , No calf tenderness, No inflammation, No pedal edema, No slow capillary refill , No swelling, No other, No abrasion, No clubbing, No cyanosis, No ecchymosis, No laceration, No no lower extremity edema bilateral, No significant edema, No tenderness, No wound Neurologic/Psychiatric: No filter washer and presser II-XII nml as tested, No no motor/sensory deficits, No alert, No normal mood/affect, No oriented x 3, No abnormal cerebellar tests, No abnormal filter washer and presser II-XII, No abnormal gait, No aphasia, No EOM palsy, No facial droop, No motor weakness, No sensory deficit, No depressed affect, No disoriented x 3, No other, No grossly intact, No power is 5/5 both on sides Skin: No normal color, No warm/dry, No cyanosis, No cool, No diaphoresis, No damp, No ecchymosis, No jaundice, No mottled, No pallor, No rash, No tattoos/ piercings, No ulcerations, No rash on exposed areas, No ulcerations on exposed areas, No other Data Review Labs Laboratory Tests 07/16/16 05:08: White Blood Count 3.6L, Red Blood Count 4.12L, Hemoglobin 12.9, Hematocrit 39, Mean Corpuscular Volume 95, Mean Corpuscular Hemoglobin 31, Mean Corpuscular Hemoglobin Concent 33, Red Cell Distribution Width 16.9H, Platelet Count 104L, Mean Platelet Volume 11.6H, Neutrophils (%) (Auto) 55, Lymphocytes (%) (Auto) 28 , Monocytes (%) (Auto) 17H, Eosinophils (%) (Auto) 1, Basophils (%) (Auto) 0, Neutrophils # (Auto) 2.0, Lymphocytes # (Auto) 1.0, Monocytes # (Auto) 0.6, Eosinophils # (Auto) 0.0, Basophils # (Auto) 0.0, Sodium Level 141, Potassium Level 3.6, Chloride Level 105, Carbon Dioxide Level 22, Anion Gap 14, Blood Urea Nitrogen 27H, Creatinine 1.19, Estimat Glomerular Filtration Rate 46, BUN/ Creatinine Ratio 23, Glucose Level 115H, Calcium Level 9.0, Total Bilirubin 1.1H , Aspartate Amino Transf (AST/SGOT) 84H, Alanine Aminotransferase (ALT/SGPT) 144H, Alkaline Phosphatase 148H, Total Protein 5.5L, Albumin 3.6 A/P-Cardiology Assessment/Admission Diagnosis nonischemic cardiomyopathy, Acute on chronic systolic heart failure, history of DVT Plan patient is euvolemic now. Lungs are clear with no significant peripheral edema. Okay to discharge on same outpatient medications as previously including Lasix, losartan and beta blockers. patient has history of DVT and takes Xarelto for it. Follow-up with Dr. Carlos in the next one week. Thank you for your consultation. Please call me if you have any questions. Dawit Barton MD, FACP, FACC, FSCAI, FHRS, CCDS Interventional Cardiology Cardiac Electrophysiology Vascular Medicine and Endovascular Interventions Clinical Quality Measures DVT/VTE Risk/Contraindication: Risk Factor Score Per Nursin RFS Level Per Nursing on Admit: 4+=Very High Dawit BARTON MD July 16, 2016 1:48 pm
[2016-07-16 14:10] VITALS: BP 109/77
== END 2016-07-16 14:10 | disposition home or self-care (01) | DRG 292 ==
LOC: EDUNIT# 19:47 → ER 19:49 → 4TH 23:10
PROVIDERS: ADMIT Internal Medicine; ATTEND Internal Medicine
DX: I50.21 Acute systolic (congestive) heart failure (principal); I42.7 Cardiomyopathy due to drug and external agent; N17.9 Acute kidney failure, unspecified; R74.0 Nonspecific elevation of levels of transaminase and lactic acid dehydrogenase [LDH]; C92.91 Myeloid leukemia, unspecified in remission; F41.9 Anxiety disorder, unspecified; F32.9 Major depressive disorder, single episode, unspecified; K21.9 Gastro-esophageal reflux disease without esophagitis; I44.7 Left bundle-branch block, unspecified; T45.1X5A Adverse effect of antineoplastic and immunosuppressive drugs, initial encounter
CPT/HCPCS: 36415; 71010; 80053; 83735; 83880; 84443; 84484; 85025; 85379; 85610; 85730; 93005; 93041; 93970; 94640

== ENCOUNTER → 2016-07-30 | Outpatient (CLI) | payer BC ==
[~2016-07-30] MED LIST changes: +ESZO1TAB10 PO; +FURO-124 PO; +LOSA25TA21 PO; +MAGN400C PO; +RIVA20TA PO
[2016-07-30 14:27] LABS: CALCIUM 9.8 MG/DL (8.5-10.1); CREATININE SERUM 1.07 MG/DL (0.60-1.30); MAGNESIUM 1.7 MG/DL (1.8-2.4)
== END ==
LOC: LAB 13:59
PROVIDERS: ATTEND Internal Medicine Cardiovascular Disease
DX: I50.23 Acute on chronic systolic (congestive) heart failure (principal); I44.69 Other fascicular block; I42.0 Dilated cardiomyopathy; C92.00 Acute myeloblastic leukemia, not having achieved remission
CPT/HCPCS: 36415; 80048; 83735

== ENCOUNTER 2016-08-02 21:33 | Emergency (ER) | payer BC ==
[~2016-08-02] VITALS: Ht 167.6 cm; Wt 75.9 kg
[2016-08-02] MEDS ORDERED: NS IV 1000 ML 1,000 ML IV ONE (21:50)
--- NOTE | 2016-08-02 21:50 | ED Fever ---
History of Present Illness General Chief Complaint: Fever-Adult/Adol Stated Complaint: FEVER/LOW BLOOD PRESSURE Nursing Triage Note: C/O FATIGUE AND FEVER STARTING TODAY WITH COUGH Sepsis Screen: Possible Sepsis Risk Source: patient, family, RN notes reviewed Exam Limitations: no limitations History of Present Illness Time seen by provider: 21:46 Initial Comments Patient presents along c/ family c/ c/o fever, cough, & increasing weakness that began earlier in the day. TMAX REGISTERED DIET TECHNICIAN was 100.9. Cough is non-productive. Family concerned because of hx of CML. Patient denied any other complaints, or problems @ this time. Timing/Duration: this morning, constant, getting worse Fever Quality: greater than 100.5 F Fever Therapy REGISTERED DIET TECHNICIAN: none Associated Symptoms: cough, weakness Allergies and Home Medications Allergies Coded Allergies: clarithromycin (Verified Allergy, Severe, HIVES, 01/12/16) tetracycline (Verified Allergy, Severe, HIVES, 01/12/16) triamcinolone (Verified Allergy, Unknown, 01/12/16) worsened rash Home Medications Carvedilol 3.125 Mg Tablet, 3.125 MG PO BID, (Reported) Cefdinir 300 Mg Capsule, 300 MG PO BID for 10 Days, #20 Ref 0 Prescribed by: CRISTINA MILLER on 08/03/16 0013 Eszopiclone 1 Mg Tablet, 1 MG PO HS, (Reported) Furosemide 40 Mg Tablet, 40 MG PO DAILY, #30 Prescribed by: GRAEME FOSTER on 07/16/16 1133 Lorazepam 0.5 Mg Tablet, 0.5-1 MG PO HS PRN for SLEEP/NAUSEA, (Reported) Lorazepam 0.5 Mg Tablet, 0.5 MG PO BID, (Reported) Losartan Potassium 25 Mg Tablet, 25 MG PO DAILY, (Reported) Magnesium Oxide 400 Mg Capsule, 400 MG PO BID, (Reported) Pantoprazole Sodium 40 Mg Tablet.dr, 40 MG PO DAILY, (Reported) Potassium Chloride 20 Meq Tablet.er, 20 MEQ PO DAILY, (Reported) Rivaroxaban 20 Mg Tablet, 20 MG PO DAILY, (Reported) Constitutional: see HPI, fever, malaise, weakness Respiratory: see HPI, cough : No Psychiatric/Neurological: See HPI, Weakness All Other Systems Reviewed Negative Unless Noted: Yes Past Lmstuhv-Plprtx-Mprwpx Hx Patient Social History Alcohol Use: Denies Use Recreational Drug Use: No Smoking Status: Never a Smoker Recent Foreign Travel: No Contact w/Someone Who Travel: No Recent Infectious Disease Expo: No Recent Hopitalizations: No Immunizations Up To Date Tetanus Booster (TDap): Unknown PED Vaccines UTD: Yes Date of Influenza Vaccine: Nov 19, 2015 Seasonal Allergies Seasonal Allergies: No Surgeries HX Surgeries: Yes (COLONSCOPY, EGD; GUM SURGERY; BONE MARROW BIOPSY X 3; PICC LINE RIGHT ARM) Surgeries: Hysterectomy, Oophorectomy Respiratory Hx Respiratory Disorders: Yes (history of pulmonary hemorrhage) Respiratory Disorders: Pneumonia Cardiovascular Hx Cardiac Disorders: Yes (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) Cardiac Disorders: Cardiomyopathy, Deep Vein Thrombosis Neurological Hx Neurological Disorders: No Reproductive System Hx Reproductive Disorders: No Sexually Transmitted Disease: No HIV/AIDS: No Female Reproductive Disorders: Ovarian Cyst Genitourinary Hx Genitourinary Disorders: No Gastrointestinal Hx Gastrointestinal Disorders: Yes Gastrointestinal Disorders: Gastroesophageal Reflux Musculoskeletal Hx Musculoskeletal Disorders: No Endocrine Hx Endocrine Disorders: No HEENT HX ENT Disorders: No Loss of Vision: Denies Hearing Impairment: Denies Cancer Hx Cancer: Yes (AML--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/18/15) Cancer: Leukemia Psychosocial Hx Psychiatric Problems: Yes Behavioral Health Disorders: Sleep Difficulties, Anxiety, Depression Integumentary HX Skin/Integumentary Disorder: Yes Skin/Integumentary Disorders: Pruritis Blood Transfusions Hx Blood Disorders: No Adverse Reaction to a Blood Tr: No Family Medical History Significant Family History: Heart Disease Family Medial History: CARDIOVASCULAR DISEASE 19 FATHER G8 BROTHER G8 BROTHER G8 BROTHER Cardiovascular disease 19 MOTHER Cataracts 19 MOTHER G8 SISTER Diabetes mellitus G8 BROTHER Hypertension 19 MOTHER MULTIPLE SCLEROSIS G8 SISTER Myocardial infarction 19 FATHER G8 BROTHER G8 BROTHER Physical Exam Vital Signs Vital Sign - Last 12Hours 08/02/16 21:39 Temp 100.2 Pulse 127 Resp 18 B/P (MAP) 115/79 Pulse Ox 96 O2 Delivery Room Air Capillary Refill : Less Than 3 Seconds General Appearance: WD/WN, no apparent distress HEENT: normal ENT inspection Neck: normal inspection Respiratory: lungs clear, no respiratory distress Cardiovascular: tachycardia Neurologic/Psychiatric: no motor/sensory deficits, alert, oriented x 3, depressed affect Skin: warm/dry, No rash Focused Exam Lactic Acid Level Laboratory Tests Test 08/02/16 21:47 Lactic Acid Level 1.27 MMOL/L (0.50-2.00) Progress/Results/Core Measures Results/Orders Lab Results Laboratory Tests Test 08/02/16 21:47 08/02/16 23:20 Range/Units White Blood Count 7.1 4.3-11.0 10^3/uL Red Blood Count 4.25 L 4.35-5.85 10^6/uL Hemoglobin 13.2 11.5-16.0 G/DL Hematocrit 40 35-52 % Mean Corpuscular Volume 94 80-99 FL Mean Corpuscular Hemoglobin 31 25-34 PG Mean Corpuscular Hemoglobin Concent 33 32-36 G/DL Red Cell Distribution Width 15.4 H 10.0-14.5 % Platelet Count 114 L 130-400 10^3/uL Mean Platelet Volume 11.5 H 7.4-10.4 FL Neutrophils (%) (Auto) 80 H 42-75 % Lymphocytes (%) (Auto) 10 L 12-44 % Monocytes (%) (Auto) 10 0-12 % Eosinophils (%) (Auto) 0 0-10 % Basophils (%) (Auto) 0 0-10 % Neutrophils # (Auto) 5.6 1.8-7.8 X 10^3 Lymphocytes # (Auto) 0.7 L 1.0-4.0 X 10^3 Monocytes # (Auto) 0.7 0.0-1.0 X 10^3 Eosinophils # (Auto) 0.0 0.0-0.3 10^3/uL Basophils # (Auto) 0.0 0.0-0.1 10^3/uL Sodium Level 139 135-145 MMOL/L Potassium Level 4.2 3.6-5.0 MMOL/L Chloride Level 104 98-107 MMOL/L Carbon Dioxide Level 22 21-32 MMOL/L Anion Gap 13 5-14 MMOL/L Blood Urea Nitrogen 25 H 7-18 MG/DL Creatinine 1.09 0.60-1.30 MG/DL Estimat Glomerular Filtration Rate 51 BUN/Creatinine Ratio 23 H 0-20 Glucose Level 118 H 70-105 MG/DL Lactic Acid Level 1.27 0.50-2.00 MMOL/L Calcium Level 9.4 8.5-10.1 MG/DL Magnesium Level 1.6 L 1.8-2.4 MG/DL Total Bilirubin 1.1 H 0.1-1.0 MG/DL Aspartate Amino Transf (AST/SGOT) 37 H 5-34 U/L Alanine Aminotransferase (ALT/SGPT) 58 H 0-55 U/L Alkaline Phosphatase 120 40-136 U/L B-Type Natriuretic Peptide 2862.2 H <100.0 PG/ML Total Protein 6.5 6.4-8.2 GM/DL Albumin 4.1 3.2-4.5 GM/DL Urine Color YELLOW Urine Clarity CLEAR Urine pH 6 5-9 Urine Specific [place] 1.015 L 1.016-1.022 Urine Protein 1+ H NEGATIVE Urine Glucose (UA) NEGATIVE NEGATIVE Urine Ketones NEGATIVE NEGATIVE Urine Nitrite POSITIVE H NEGATIVE Urine Bilirubin NEGATIVE NEGATIVE Urine Urobilinogen 1 NORMAL MG/DL Urine Leukocyte Esterase 2+ H NEGATIVE Urine RBC (Auto) 3+ H NEGATIVE Urine RBC 2-5 H /HPF Urine WBC 25-50 H /HPF Urine Squamous Epithelial Cells 2-5 /HPF Urine Crystals NONE /LPF Urine Bacteria MODERATE H /HPF Urine Casts NONE /LPF Urine Mucus SMALL H /LPF Urine Culture Indicated YES My Orders Orders - CRISTINA MILLER DO Saline Lock/Iv-Start (08/02/16 21:50) BNP (08/02/16 21:50) Cbc With Automated Diff (08/02/16 21:50) Comprehensive Metabolic Panel (08/02/16 21:50) Magnesium (08/02/16 21:50) Ua Culture If Indicated (08/02/16 21:50) Blood Culture (08/02/16 21:50) Lactic Acid Analyzer (08/02/16 21:50) Ns Iv 1000 Ml (Sodium Chloride 0.9%) (08/02/16 21:50) Chest 1 View, Ap/Pa Only (08/02/16 22:30) Urine Culture (08/02/16 23:20) Ceftriaxone Injection (Rocephin Injectio (08/03/16 00:15) Ceftriaxone Injection (Rocephin Injectio (08/03/16 00:06) Ns (Ivpb) (Sodium Chloride 0.9% Ivpb Bag (08/03/16 00:06) Medications Given in ED Current Medications Medications Dose Ordered Sig/Abbey Route Start Time Stop Time Status Last Admin Dose Admin Sodium Chloride 1,000 ml @ 0 mls/hr Q0M ONCE IV 08/02/16 21:50 08/02/16 21:52 DC 08/02/16 22:28 0 MLS/HR Vital Signs/I&O Vital Sign - Last 12Hours 08/02/16 21:39 Temp 100.2 Pulse 127 Resp 18 B/P (MAP) 115/79 Pulse Ox 96 O2 Delivery Room Air Blood Pressure Mean: 91 Diagnostic Imaging Diagonstic Imaging: Xray Plain Films/CT/US/NM/MRI: chest Reviewed: Reviewed by Me (NAD) Departure Impression Impression: Primary Impression: Fever Additional Impressions: UTI (urinary tract infection) Chronic CHF (congestive heart failure) CML (chronic myelocytic leukemia) Disposition: HOME, SELF-CARE Condition: Stable Departure-Patient Inst. Decision time for Depature: 00:09 Referrals: WHITNEY NIELSON MD (PCP/Family) Primary Care Physician Patient Instructions: Urinary Tract Infection, Adult (DC) Add. Discharge Instructions: All discharge instructions reviewed with patient and/or family. Voiced understanding. CHECK WITH YOUR PCP IN 48-72 HOURS ON THE RESULTS OF YOUR URINE CULTURE, ESPECIALLY IF YOU AREN'T STARTING TO FEEL BETTER. RECOMMEND 650-1000 mg OF TYLENOL EVERY 6 HOURS NEEDED FOR FEVER (WHICH WILL LIKELY RUN FOR THE NEXT 48-72). Scripts Cefdinir (Cefdinir) 300 Mg Capsule 300 MG PO BID for UTI for 10 Days, #20 CAP 0 Refills Prov: CRISTINA MILLER DO 08/03/16 CRISTINA MILLER DO Aug 02, 2016 21:50
[2016-08-02 21:57] LABS: BASOPHILS % (AUTO) 0 % (0-10); EOSINOPHILS % (AUTO) 0 % (0-10); LYMPHOCYTES # (AUTO) 0.7 X 10^3 (1.0-4.0); LYMPHOCYTES % (AUTO) 10 % (12-44); MEAN CORPUSCULAR HEMOGLOBIN 31 PG (25-34); MEAN CORPUSCULAR HGB CONC 33 G/DL (32-36); MEAN CORPUSCULAR VOLUME 94 FL (80-99); MEAN PLATELET VOLUME 11.5 FL (7.4-10.4); MONOCYTES # (AUTO) 0.7 X 10^3 (0.0-1.0); MONOCYTES % (AUTO) 10 % (0-12); NEUTROPHILS # (AUTO) 5.6 X 10^3 (1.8-7.8); NEUTROPHILS % (AUTO) 80 % (42-75); PLATELET COUNT 114 10^3/uL (130-400); RED BLOOD COUNT 4.25 10^6/uL (4.35-5.85); RED CELL DISTRIBUTION WIDTH 15.4 % (10.0-14.5); WHITE BLOOD COUNT 7.1 10^3/uL (4.3-11.0)
[2016-08-02 22:23] LABS: ALBUMIN 4.1 GM/DL (3.2-4.5); BILIRUBIN,TOTAL 1.1 MG/DL (0.1-1.0); CALCIUM 9.4 MG/DL (8.5-10.1); CREATININE SERUM 1.09 MG/DL (0.60-1.30); MAGNESIUM 1.6 MG/DL (1.8-2.4); POTASSIUM 4.2 MMOL/L (3.6-5.0); TOTAL PROTEIN 6.5 GM/DL (6.4-8.2)
[2016-08-02 23:30] LABS: BILIRUBIN,URINE NEGATIVE (NEGATIVE); KETONES,URINE NEGATIVE (NEGATIVE); LEUKOCYTE ESTERASE ,URINE 2+ (NEGATIVE); NITRITE,URINE POSITIVE (NEGATIVE); PH,URINE 6 (5-9); PROTEIN,URINE 1+ (NEGATIVE); UROBILINOGEN,URINE 1 MG/DL (NORMAL)
[2016-08-02 23:44] LABS: WBC,URINE 25-50 /HPF
[2016-08-03] MEDS ORDERED: cefTRIAXone 1 GM (ROCEPHIN) VIAL ONE (00:06)
[2016-08-03] MEDS ORDERED: NS (IVPB) 50 ML ONE (00:06)
[2016-08-03] MEDS ORDERED: CEFD300C3 PO (00:13)
[2016-08-03] MEDS ORDERED: cefTRIAXone INJECTION 1,000 MG in NS (IVPB) 50 ML IV ONE (00:15)
[2016-08-03 00:42] VITALS: BP 100/77
--- NOTE | 2016-08-03 05:39 | Diagnostic Imaging Report ---
INDICATION: Fatigue, fever starting earlier in the day with cough. TECHNIQUE: Single view chest 10:44 PM. CORRELATION STUDY: 07/14/2016 FINDINGS: Heart size and vasculature are slightly prominent. There is question of small patchy density right upper lobe which is small area of infiltrate not excluded. IMPRESSION: 1. Heart size and vasculature borderline. 2. Question of a small early infiltrate in the right upper lobe. Would, however, recommend short-term followup imaging for reassessment and to document resolution. Dictated by: Dictated on workstation # [id number]
== END 2016-08-03 00:42 | disposition home or self-care (01) ==
LOC: EDUNIT# 21:33 → ER 21:36
DX: N39.0 Urinary tract infection, site not specified (principal); C92.10 Chronic myeloid leukemia, BCR/ABL-positive, not having achieved remission; I50.9 Heart failure, unspecified; K21.9 Gastro-esophageal reflux disease without esophagitis; Z79.01 Long term (current) use of anticoagulants; Z86.718 Personal history of other venous thrombosis and embolism; Z86.018 Personal history of other benign neoplasm
CPT/HCPCS: 36415; 71010; 80053; 81000; 83605; 83735; 83880; 85025; 87040; 87088; 87186

== ENCOUNTER 2016-08-21 14:39 | Emergency (ER) | payer BC ==
[~2016-08-21] VITALS: Ht 167.6 cm; Wt 76.2 kg
[~2016-08-21 14:39] MED LIST changes: +CEFD300C3 PO
[2016-08-21] MEDS ORDERED: NS IV 1000 ML 1,000 ML IV ONE (15:01)
[2016-08-21 15:08] LABS: BASOPHILS % (AUTO) 0 % (0-10); EOSINOPHILS % (AUTO) 0 % (0-10); LYMPHOCYTES # (AUTO) 0.5 X 10^3 (1.0-4.0); LYMPHOCYTES % (AUTO) 7 % (12-44); MEAN CORPUSCULAR HEMOGLOBIN 31 PG (25-34); MEAN CORPUSCULAR HGB CONC 33 G/DL (32-36); MEAN CORPUSCULAR VOLUME 94 FL (80-99); MONOCYTES # (AUTO) 0.8 X 10^3 (0.0-1.0); MONOCYTES % (AUTO) 12 % (0-12); NEUTROPHILS # (AUTO) 5.8 X 10^3 (1.8-7.8); NEUTROPHILS % (AUTO) 81 % (42-75); PLATELET COUNT 122 10^3/uL (130-400); RED BLOOD COUNT 4.21 10^6/uL (4.35-5.85); RED CELL DISTRIBUTION WIDTH 16.5 % (10.0-14.5); WHITE BLOOD COUNT 7.2 10^3/uL (4.3-11.0)
[2016-08-21 15:14] LABS: INR 2.1 (0.8-1.4); PROTHROMBIN TIME PATIENT 23.5 SEC (12.2-14.7)
[2016-08-21 15:26] LABS: ALANINE AMINOTRANSFERASE 41 U/L (0-55); ANION GAP 10 MMOL/L (5-14); ASPARTATE AMINO TRANSFERASE 22 U/L (5-34); BILIRUBIN,TOTAL 1.8 MG/DL (0.1-1.0); BLOOD UREA NITROGEN 20 MG/DL (7-18); BUN/CREATININE RATIO 18; CALCIUM 9.6 MG/DL (8.5-10.1); CARBON DIOXIDE 24 MMOL/L (21-32); CHLORIDE 104 MMOL/L (98-107); CREATININE SERUM 1.09 MG/DL (0.60-1.30); GFR ESTIMATED 51; GLUCOSE 149 MG/DL (70-105); LIPASE < 4 U/L (8-78); POTASSIUM 3.6 MMOL/L (3.6-5.0); SODIUM 138 MMOL/L (135-145); TOTAL PROTEIN 6.7 GM/DL (6.4-8.2)
[2016-08-21 15:31] LABS: ANISOCYTOSIS SLIGHT; EOSINOPHILS % (MANUAL) 2 %; LYMPHOCYTES % (MANUAL) 7 %; NEUTROPHILS % (MANUAL) 80 %
--- NOTE | 2016-08-21 15:38 | Diagnostic Imaging Report ---
INDICATION: Fever and chills since earlier in the day. TECHNIQUE: Single view chest 3:17 PM. CORRELATION STUDY: 08/02/2016 FINDINGS: Heart size does remain mildly enlarged as does the vasculature. Mildly prominent peribronchial and interstitial markings are noted. This could reflect underlying viral type pneumonitis or reactive airway changes. No focal lobar consolidation. IMPRESSION: 1. Cardiac enlargement without evidence of overt failure. 2. Slight prominent interstitial and peribronchial markings could reflect reactive airway changes or perhaps viral type pneumonitis. No focal lobar consolidation at this time. Dictated by: Dictated on workstation # [id number]
[2016-08-21 16:02] LABS: BILIRUBIN,URINE NEGATIVE (NEGATIVE); KETONES,URINE NEGATIVE (NEGATIVE); LEUKOCYTE ESTERASE ,URINE 1+ (NEGATIVE); NITRITE,URINE NEGATIVE (NEGATIVE); PH,URINE 5 (5-9); PROTEIN,URINE 1+ (NEGATIVE); UROBILINOGEN,URINE 1 MG/DL (NORMAL)
[2016-08-21 16:16] LABS: SQUAMOUS EPITHELIAL CELL,UR 25-50 /HPF; WBC,URINE RARE /HPF
[2016-08-21] MEDS ORDERED: NS IV 500 ML 500 ML IV ONE (16:42)
[2016-08-21] MEDS ORDERED: VANCOMYCIN ORAL SUSPENSION 60 ML BOTTLE PO ONE (16:45)
[2016-08-21] MEDS ORDERED: VANC125C4 PO (16:53)
--- NOTE | 2016-08-21 16:53 | ED General ---
General Chief Complaint: Fever-Adult/Adol Stated Complaint: FEVER Nursing Triage Note: PT CO OF FEVER LAST PM, MUCOUS STOOLS FOUL SMELLING, SL ABD DISCOMFORT, N/V. PT HAS HX OF LEUKEMIA AND C-DIFF Nursing Sepsis Screen: Possible Sepsis Risk Source of Information: Patient Exam Limitations: No Limitations History of Present Illness Time Seen by Provider: 15:00 Initial Comments This 61 year old woman presents to the ER with complaints of diarrhea and abdominal discomfort. She was recently admitted for urinary tract infection and is concerned that antibiotic use may have triggered C. difficile infection. She has a history of C. difficile last January. She reports temperature at home of up to 101.7. She is presently afebrile. She also had some vomiting earlier. She is notably tachycardic. She also notes that she uses diuretics and has recently taken more diuretics because of weight gain. She is also on Xarelto due to history of DVT. Her reason for taking diuretics is cardiomyopathy and CHF related to chemotherapy use for AML. To her knowledge she does not have active neoplastic disease. Allergies and Home Medications Allergies Coded Allergies: clarithromycin (Verified Allergy, Severe, HIVES, 01/12/16) tetracycline (Verified Allergy, Severe, HIVES, 01/12/16) triamcinolone (Verified Allergy, Unknown, 01/12/16) worsened rash Home Medications Carvedilol 3.125 Mg Tablet, 3.125 MG PO BID, (Reported) Eszopiclone 1 Mg Tablet, 1 MG PO HS, (Reported) Furosemide 40 Mg Tablet, 40 MG PO DAILY, #30 Prescribed by: GRAEME FOSTER on 07/16/16 1133 Lorazepam 0.5 Mg Tablet, 0.5-1 MG PO HS PRN for SLEEP/NAUSEA, (Reported) Lorazepam 0.5 Mg Tablet, 0.5 MG PO BID, (Reported) Losartan Potassium 25 Mg Tablet, 25 MG PO DAILY, (Reported) Magnesium Oxide 400 Mg Capsule, 400 MG PO BID, (Reported) Pantoprazole Sodium 40 Mg Tablet.dr, 40 MG PO DAILY, (Reported) Potassium Chloride 20 Meq Tablet.er, 20 MEQ PO DAILY, (Reported) Rivaroxaban 20 Mg Tablet, 20 MG PO DAILY, (Reported) Vancomycin HCl 125 Mg Capsule, 125 MG PO QID, #40 Prescribed by: MYRA HENAO on 08/21/16 7093 Constitutional: see HPI EENTM: no symptoms reported Respiratory: no symptoms reported Cardiovascular: see HPI Gastrointestinal: see HPI Genitourinary: no symptoms reported : No Musculoskeletal: no symptoms reported Skin: no symptoms reported Psychiatric/Neurological: No Symptoms Reported Hematologic/Lymphatic: See HPI Immunological/Allergic: see HPI Past Uvoxsvi-Iydnma-Twswwb Hx Patient Social History Alcohol Use: Denies Use Recreational Drug Use: No Smoking Status: Never a Smoker Recent Foreign Travel: No Contact w/Someone Who Travel: No Recent Infectious Disease Expo: No Recent Hopitalizations: No Immunizations Up To Date Tetanus Booster (TDap): Unknown PED Vaccines UTD: Yes Date of Influenza Vaccine: Nov 19, 2015 Seasonal Allergies Seasonal Allergies: No Surgeries HX Surgeries: Yes (COLONSCOPY, EGD; GUM SURGERY; BONE MARROW BIOPSY X 3; PICC LINE RIGHT ARM) Surgeries: Hysterectomy, Oophorectomy Respiratory Hx Respiratory Disorders: Yes (history of pulmonary hemorrhage) Respiratory Disorders: Pneumonia Cardiovascular Hx Cardiac Disorders: Yes (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) Cardiac Disorders: Cardiomyopathy, Deep Vein Thrombosis Neurological Hx Neurological Disorders: No Reproductive System Hx Reproductive Disorders: No Sexually Transmitted Disease: No HIV/AIDS: No Female Reproductive Disorders: Ovarian Cyst Genitourinary Hx Genitourinary Disorders: No Gastrointestinal Hx Gastrointestinal Disorders: Yes Gastrointestinal Disorders: Gastroesophageal Reflux, C-Diff Musculoskeletal Hx Musculoskeletal Disorders: No Endocrine Hx Endocrine Disorders: No HEENT HX ENT Disorders: No Loss of Vision: Denies Hearing Impairment: Denies Cancer Hx Cancer: Yes (AML--DX 08/18/15) Cancer: Leukemia Psychosocial Hx Psychiatric Problems: Yes Behavioral Health Disorders: Sleep Difficulties, Anxiety, Depression Integumentary HX Skin/Integumentary Disorder: Yes Skin/Integumentary Disorders: Pruritis Blood Transfusions Hx Blood Disorders: No Adverse Reaction to a Blood Tr: No Family Medical History Significant Family History: Heart Disease Family Medial History: CARDIOVASCULAR DISEASE 19 FATHER G8 BROTHER G8 BROTHER G8 BROTHER Cardiovascular disease 19 MOTHER Cataracts 19 MOTHER G8 SISTER Diabetes mellitus G8 BROTHER Hypertension 19 MOTHER MULTIPLE SCLEROSIS G8 SISTER Myocardial infarction 19 FATHER G8 BROTHER G8 BROTHER Physical Exam Vital Signs Vital Sign - Last 12Hours 08/21/16 14:55 Temp 96.0 Pulse 118 Resp 18 B/P (MAP) 110/79 Pulse Ox 94 Capillary Refill : Less Than 3 Seconds General Appearance: No Apparent Distress, WD/WN HEENT: PERRL/EOMI, Normal ENT Inspection Neck: Normal Inspection Respiratory: Lungs Clear, Normal Breath Sounds, No Accessory Muscle Use, No Respiratory Distress Cardiovascular: No Edema, No Murmur, Tachycardia Gastrointestinal: Normal Bowel Sounds, Non Tender, Soft Extremity: Normal Inspection, No Pedal Edema Neurologic/Psychiatric: Alert, Oriented x3, No Motor/Sensory Deficits, Normal 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, 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 Norm as Tested Skin: Normal Color, Warm/Dry Focused Exam Lactic Acid Level Progress/Results/Core Measures Results/Orders Lab Results Laboratory Tests Test 08/21/16 14:55 08/21/16 15:50 Range/Units White Blood Count 7.2 4.3-11.0 10^3/uL Red Blood Count 4.21 L 4.35-5.85 10^6/uL Hemoglobin 13.2 11.5-16.0 G/DL Hematocrit 40 35-52 % Mean Corpuscular Volume 94 80-99 FL Mean Corpuscular Hemoglobin 31 25-34 PG Mean Corpuscular Hemoglobin Concent 33 32-36 G/DL Red Cell Distribution Width 16.5 H 10.0-14.5 % Platelet Count 122 L 130-400 10^3/uL Mean Platelet Volume 11.0 H 7.4-10.4 FL Neutrophils (%) (Auto) 81 H 42-75 % Lymphocytes (%) (Auto) 7 L 12-44 % Monocytes (%) (Auto) 12 0-12 % Eosinophils (%) (Auto) 0 0-10 % Basophils (%) (Auto) 0 0-10 % Neutrophils # (Auto) 5.8 1.8-7.8 X 10^3 Lymphocytes # (Auto) 0.5 L 1.0-4.0 X 10^3 Monocytes # (Auto) 0.8 0.0-1.0 X 10^3 Eosinophils # (Auto) 0.0 0.0-0.3 10^3/uL Basophils # (Auto) 0.0 0.0-0.1 10^3/uL Neutrophils % (Manual) 80 % Lymphocytes % (Manual) 7 % Monocytes % (Manual) 11 % Eosinophils % (Manual) 2 % Anisocytosis SLIGHT Prothrombin Time 23.5 H 12.2-14.7 SEC INR Comment 2.1 H 0.8-1.4 Activated Partial Thromboplast Time 35 24-35 SEC Sodium Level 138 135-145 MMOL/L Potassium Level 3.6 3.6-5.0 MMOL/L Chloride Level 104 98-107 MMOL/L Carbon Dioxide Level 24 21-32 MMOL/L Anion Gap 10 5-14 MMOL/L Blood Urea Nitrogen 20 H 7-18 MG/DL Creatinine 1.09 0.60-1.30 MG/DL Estimat Glomerular Filtration Rate 51 BUN/Creatinine Ratio 18 Glucose Level 149 H 70-105 MG/DL Lactic Acid Level 1.53 0.50-2.00 MMOL/L Calcium Level 9.6 8.5-10.1 MG/DL Total Bilirubin 1.8 H 0.1-1.0 MG/DL Aspartate Amino Transf (AST/SGOT) 22 5-34 U/L Alanine Aminotransferase (ALT/SGPT) 41 0-55 U/L Alkaline Phosphatase 129 40-136 U/L Total Protein 6.7 6.4-8.2 GM/DL Albumin 4.0 3.2-4.5 GM/DL Lipase < 4 L 8-78 U/L Urine Color YELLOW Urine Clarity CLEAR Urine pH 5 5-9 Urine Specific [place] 1.020 1.016-1.022 Urine Protein 1+ H NEGATIVE Urine Glucose (UA) NEGATIVE NEGATIVE Urine Ketones NEGATIVE NEGATIVE Urine Nitrite NEGATIVE NEGATIVE Urine Bilirubin NEGATIVE NEGATIVE Urine Urobilinogen 1 NORMAL MG/DL Urine Leukocyte Esterase 1+ H NEGATIVE Urine RBC (Auto) 4+ H NEGATIVE Urine RBC 10-25 H /HPF Urine WBC RARE /HPF Urine Squamous Epithelial Cells 25-50 H /HPF Urine Crystals NONE /LPF Urine Bacteria TRACE /HPF Urine Casts NONE /LPF Urine Mucus SMALL H /LPF Urine Culture Indicated NO Micro Results Microbiology 08/21/16 Blood Culture - Preliminary, Resulted No growth 08/21/16 Blood Culture - Preliminary, Resulted No growth 08/21/16 Gram Stain - Final, Resulted 08/21/16 Sputum Culture - Preliminary, Resulted Gram Negative Tommie My Orders Orders - MYRA ALY MD Cbc With Automated Diff (08/21/16 15:01) Comprehensive Metabolic Panel (08/21/16 15:01) Lactic Acid Analyzer (08/21/16 15:01) Blood Culture (08/21/16 15:01) Sputum Culture (08/21/16 15:01) Ua Culture If Indicated (08/21/16 15:01) Protime With Inr (08/21/16 15:) Partial Thromboplastin Time (08/21/16 15:) Chest 1 View, Ap/Pa Only (08/21/16 15:01) O2 (08/21/16 15:01) Saline Lock/Iv-Start (08/21/16 15:) Saline Lock/Iv-Start (08/21/16 15:01) Vital Signs Adult Sepsis Patie Q1HR (08/21/16 15:) Remove Rings In Anticipation O (08/21/16 15:) Lipase (08/21/16 15:) Ns Iv 1000 Ml (Sodium Chloride 0.9%) (08/21/16 15:01) Manual Differential (08/21/16 14:55) Ns Iv 500 Ml (Sodium Chloride 0.9%) (08/21/16 16:42) Fecal Wbc (08/21/16 16:42) Vancomycin Oral Suspension (Vancomycin O (08/21/16 16:45) Ramos Syrup (Ramos Syrup) 30 Ml, Vanco (08/21/16 18:00) Medications Given in ED Vital Signs/I&O Blood Pressure Mean: 89 Progress Note : Progress Note Patient was hydrated with 1500 mL normal saline boluses. This did improve her tachycardia. Patient was presumed to have recurrence of C. difficile based on symptoms. She was not able to produce satisfactory stool sample for testing while in the ER. She was started on oral vancomycin and the remainder of her bottle was sent home for home use. She was given a prescription for labs and supplies for collecting a stool specimen. Departure Impression Impression: Primary Impression: Hypovolemia Additional Impressions: Diarrhea Qualified Codes: R19.7 - Diarrhea, unspecified Abdominal discomfort Disposition: 01 HOME, SELF-CARE Condition: Improved Departure-Patient Inst. Decision time for Depature: 16:40 Referrals: WHITNEY NIELSON MD (PCP/Family) Primary Care Physician Patient Instructions: Acute Abdomen (Belly Pain) Add. Discharge Instructions: Drink plenty of clear liquids. Gradually advance your diet with small quantities of bland food as tolerated. Use the oral vancomycin 4 times daily. Also use probiotics 3-4 times daily, with meals and you are eating. Follow-up with your doctor as soon as possible. Return to emergency room if symptoms worsen. All discharge instructions reviewed with patient and/or family. Voiced understanding. Scripts Vancomycin HCl (Vancomycin HCl) 125 Mg Capsule 125 MG PO QID, #40 CAP Prov: MYRA ALY MD 08/21/16 Copy Copies To 1: WHITNEY NIELSON MD, JOSHUA T MD Aug 21, 2016 16:53
[2016-08-21 17:22] VITALS: BP 110/79
[2016-08-21] MEDS ORDERED: VANCOMYCIN ORAL 250 MG/5 ML 60 ML PO SCH ×2 (18:00)
--- OUTSIDE RECORDS SUMMARY | 2016-08-22 16:11 | XMS REPORT | Continuity of Care Document ---
Author Author [facility] Organization [facility] Address Unknown Phone Unavailable Care Team Providers Care Switchboard Troubleshooter Name Role Phone Anuradha Schulte PCP [phone] Source Comments Some departments are not documenting in the electronic medical record. If you do not see the information that you expected, contact Release of Information in the Health Information Management department at [phone] for further assistance in locating additional records.[facility] Active Allergies and Adverse Reactions Allergen [...] Rectal discomfort 08/24/2015 AML (acute myelogenous leukemia) ([facility]) 08/18/2015 GERD (gastroesophageal reflux disease) Resolved Problems Problem Noted Date Resolved Date Fever 10/22/2015 11/02/2015 Septic shock ([facility]) 10/22/2015 11/02/2015 Vesicular rash 09/22/2015 10/10/2015 Sepsis ([facility]) 09/21/2015 10/10/2015 Fever and neutropenia ([facility]) 09/07/2015 11/02/2015 Acute respiratory failure with hypoxemia ([facility]) 08/30/2015 10/10/2015 Hypophosphatemia 08/26/2015 10/10/2015 Hypokalemia 08/26/2015 10/10/2015 Dyspnea 08/26/2015 10/10/2015 Peripheral edema 08/21/2015 11/02/2015 SIRS (systemic inflammatory response syndrome) ([facility]) 08/19/2015 10/10/2015 Social History Tobacco Use Types Packs/Day Years [...]
== END 2016-08-21 17:22 | disposition home or self-care (01) ==
LOC: EDUNIT# 14:39 → ER 14:40
DX: E86.1 Hypovolemia (principal); R19.7 Diarrhea, unspecified; R10.9 Unspecified abdominal pain; I50.9 Heart failure, unspecified; I42.9 Cardiomyopathy, unspecified; K21.9 Gastro-esophageal reflux disease without esophagitis; F41.9 Anxiety disorder, unspecified; F32.9 Major depressive disorder, single episode, unspecified; Z90.710 Acquired absence of both cervix and uterus; Z86.718 Personal history of other venous thrombosis and embolism; Z87.19 Personal history of other diseases of the digestive system; Z79.01 Long term (current) use of anticoagulants
CPT/HCPCS: 36415; 71010; 80053; 81000; 83605; 83690; 85007; 85027; 85610; 85730; 87040; 87070; 87186; 87205; 96360; 96361

== ENCOUNTER 2016-08-21 18:26 | Outpatient (RCR) | payer BC ==
[~2016-08-21 18:26] MED LIST changes: +VANC125C4 PO
[2016-08-26] MEDS ORDERED: CIPR-225 PO (09:20)
[2016-09-26] MEDS ORDERED: FURO40TA4 PO (13:43)
[2016-09-26] MEDS ORDERED: POTA20TA8 PO (13:43)
[2016-09-26] MEDS ORDERED: ESZO1TAB11 PO (13:43)
[2016-09-26] MEDS ORDERED: LORA0.5T PO (14:25)
[2016-09-26] MEDS ORDERED: FLUC200T5 PO (14:25)
[2016-09-30] MEDS ORDERED: HYDR-3812 PO (08:51)
[2016-09-30] MEDS ORDERED: BISA5TAB8 PO (17:14)
[2016-10-03] MEDS ORDERED: MORP15TA69 PO (14:21)
[2016-10-03] MEDS ORDERED: APIX2.5T PO (14:32)
== END 2016-11-17 | disposition home or self-care (01) ==
LOC: LAB 18:26
PROVIDERS: ATTEND Family Medicine
DX: R19.7 Diarrhea, unspecified (principal)
CPT/HCPCS: 87045; 87046; 87177; 87324; 87328; 87329; 87449; 89055

== ENCOUNTER → 2016-09-21 | Outpatient (CLI) | payer BC ==
[~2016-09-21] MED LIST changes: +CIPR-225 PO
--- NOTE | 2016-09-21 14:05 | Diagnostic Imaging Report ---
INDICATION: History of deep venous thrombosis. TECHNIQUE: Grayscale with color-flow and Doppler waveform evaluation of the left lower extremity deep venous system. CORRELATION STUDY: 10/20/2015. FINDINGS: There is partial filling defect within the peripheral and more central aspect of the femoral vein of the thigh, compatible with partially occlusive thrombus. More peripherally, the popliteal vein and veins within the calf appearing unremarkable. More centrally, the femoral vein and common femoral vein are unremarkable. No soft tissue fluid collection. IMPRESSION: 1. Positive for partially occlusive thrombus within the peripheral and central aspect of the femoral vein of the thigh of the left leg. Dictated by: Dictated on workstation # [id number]
== END ==
LOC: RAD 12:19
PROVIDERS: ATTEND Internal Medicine Hematology & Oncology
DX: I82.412 Acute embolism and thrombosis of left femoral vein (principal)

== ENCOUNTER → 2016-09-21 | Outpatient (CLI) | payer BC | LOC: CARD 12:16 | PROVIDERS: ATTEND Internal Medicine Cardiovascular Disease | DX: I50.22 Chronic systolic (congestive) heart failure (principal); I44.69 Other fascicular block; I42.0 Dilated cardiomyopathy; C92.00 Acute myeloblastic leukemia, not having achieved remission | CPT/HCPCS: 93306 ==

== ENCOUNTER → 2016-09-26 | Outpatient (CLI) | payer BC ==
[~2016-09-26] VITALS: Ht 167.6 cm; Wt 78.9 kg
[~2016-09-26] MED LIST changes: +ESZO1TAB11 PO; +FLUC200T5 PO; +HEParin (CATH LAB) 1,000 ML IV ONE; +MIDAZOLAM 2 MG/2 ML (VERSED) VIAL ONE; +NS IV 1000 ML 1,000 ML IV SCH; +NS IV 1000 ML 1,000 ML ONE; +POTA20TA8 PO; +fentaNYL INJECTION 100 MCG/2 ML AMP ONE
[2016-09-26 13:26] VITALS: BP 101/71
[2016-09-26 13:42] LABS: MEAN PLATELET VOLUME 11.4 FL (7.4-10.4); RED BLOOD COUNT 4.27 10^6/uL (4.35-5.85); RED CELL DISTRIBUTION WIDTH 20.3 % (10.0-14.5)
[2016-09-26 13:48] LABS: WHITE BLOOD COUNT 90.1 10^3/uL (4.3-11.0)
[2016-09-26 13:54] LABS: INR 3.5 (0.8-1.4); PROTHROMBIN TIME PATIENT 35.2 SEC (12.2-14.7)
[2016-09-26 14:02] LABS: ALBUMIN 3.9 GM/DL (3.2-4.5); BILIRUBIN,TOTAL 0.8 MG/DL (0.1-1.0); CALCIUM 9.7 MG/DL (8.5-10.1); CREATININE SERUM 1.18 MG/DL (0.60-1.30); POTASSIUM 3.8 MMOL/L (3.6-5.0); TOTAL PROTEIN 6.4 GM/DL (6.4-8.2)
--- NOTE | 2016-09-26 17:24 | Diagnostic Imaging Report ---
EXAMINATION: IVC filter placement. INDICATION: Patient presents with acute leukemia and has a lower extremity DVT. Due to his disease and treatment it is expected that she will become thrombocytopenic and anticoagulation will be contraindicated. Oncology requested and IVC filter, to be placed to prevent the pulmonary embolism. CONSENT: Informed consent was obtained from the patient. The risks, benefits, potential complications and alternatives were reviewed and all questions answered to the patient's satisfaction. The patient's vital signs, cardiac rhythm, and pulse oximetry were observed throughout the procedure by qualified nursing personnel. SEDATION: 100 mcg of fentanyl. Versed was not administered. OTHER MEDICATIONS: None. CONTRAST: 70 mL of Isovue 300. FLUOROSCOPY TIME: 3.4 minutes PROCEDURE: After sterile preparation and draping, 1% lidocaine was utilized for local anesthesia. Ultrasound examination of the right internal jugular vein was performed with a patent compressible vein seen. Under ultrasound guidance, puncture into the right internal jugular vein with a an 18-gauge needle. Over the wire, a long 7 Fijian sheath was placed with the tip of the sheath in the upper aspect of the right common iliac vein. Subsequently, using power injection, digital subtraction venogram of the IVC was performed frontal projection. The venacavogram images demonstrate a normal IVC diameter of less than 2.8 cm with no thrombus. The renal veins are clearly identified and marked for position. The lower renal vein is on the left at the upper L3 level. The sheath was then advanced over a wire and utilizing its dilator into position at the level of the renal vein. Subsequently, an Ivana filter is introduced through the sheath and deployed without difficulty. Post deployment contrast injection through the sheath with DSA demonstrates satisfactory position with no contrast extravasation. The introducer sheath was removed without difficulty and hemostasis obtained with manual compression. No immediate complications. IMPRESSION: 1. Normal inferior venacavogram. 2. Successful deployment of a Ivana retrievable filter in the infrarenal IVC. 3. If the patient becomes a candidate for anticoagulation and would not need the filter anymore, then please refer the patient for a filter retrieval. EXAMINATION: IVC filter placement Ultrasound-guided puncture of the right internal jugular vein vein INDICATION: Patient with leukemia and DVT in the lower extremities. Due to a pending therapy, there is anticipated Doppler and the platelets and contraindication to anticoagulation, therefore from there is needed to prevent PE. CONSENT: Informed consent was obtained from the patient. The risks, benefits, potential complications and alternatives were reviewed and all questions answered to the patient's satisfaction. The patient's vital signs, cardiac rhythm, and pulse oximetry were observed throughout the procedure by qualified nursing personnel. SEDATION: None OTHER MEDICATIONS: None CONTRAST: 30 mL of Isovue 300. FLUOROSCOPY TIME: 2.5 minutes PROCEDURE: After sterile preparation and draping, 1% lidocaine was utilized for local anesthesia. Ultrasound examination of the right IJ vein was performed with a patent compressible vein seen. Under ultrasound guidance, puncture into the common femoral vein with a micropuncture kit utilized. After standard exchange technique, a 6 Fijian sheath was placed with the tip of the sheath in the upper aspect of the right common iliac vein. Subsequently, using power injection, digital subtraction venogram of the IVC was performed in the KAEL and frontal projections. The venacavogram images demonstrate a normal IVC diameter of less than 2.8 cm with no thrombus. The renal veins are clearly identified and marked for position. The sheath was then advanced over a wire and utilizing its dilator into position at the level of the renal vein. Subsequently, an OptEase filter is introduced through the sheath and deployed without difficulty. Post deployment contrast injection through the sheath with DSA demonstrates satisfactory position with no contrast extravasation. The introducer sheath was removed without difficulty and hemostasis obtained with manual compression. No immediate complications. IMPRESSION: 1. Normal inferior venacavogram. 2. Successful deployment of an OptEase retrievable filter in the infrarenal IVC. Dictated by: Dictated on workstation # [id number]
--- NOTE | 2016-09-26 19:23 | Diagnostic Imaging Report ---
EXAMINATION: Ultrasound guidance for vascular access. INDICATION: IVC filter placement. PROCEDURE: The right internal jugular vein is examined and is compressible with no clot seen. It is deemed suitable for access for IVC filter placement. After sterile preparation, 1% lidocaine was administered and an 18-gauge needle was introduced under live ultrasound guidance with ultrasound image saved to document good positioning of the needle in the vein. IMPRESSION: Ultrasound guidance was utilized for access into the right internal jugular vein for subsequent IVC filter placement. Dictated by: Dictated on workstation # [id number]
== END ==
LOC: RAD 12:41
PROVIDERS: ATTEND Internal Medicine Hematology & Oncology
DX: I82.4Z2 Acute embolism and thrombosis of unspecified deep veins of left distal lower extremity (principal); Z95.828 Presence of other vascular implants and grafts; C95.90 Leukemia, unspecified not having achieved remission
CPT/HCPCS: 36415; 37191; 76937; 80053; 85027; 85610; 85730; 87081

== ENCOUNTER 2016-09-30 08:36 | Inpatient (IN) | payer BC ==
[~2016-09-30] VITALS: Ht 167.6 cm; Wt 85.0 kg
[~2016-09-30 08:36] MED LIST changes: -HEParin (CATH LAB) 1,000 ML IV ONE; -MIDAZOLAM 2 MG/2 ML (VERSED) VIAL ONE; -NS IV 1000 ML 1,000 ML IV SCH; -NS IV 1000 ML 1,000 ML ONE; -fentaNYL INJECTION 100 MCG/2 ML AMP ONE
--- OUTSIDE RECORDS SUMMARY | 2016-09-30 08:41 | XMS REPORT | Clinical Summary ---
Author Author [facility] Organization [facility] Address Unknown Phone Unavailable Care Team Providers Care Soaker Meat Name Role Phone PCP Unavailable Source Comments Some departments are not documenting in the electronic medical record. If you do not see the information that you expected, contact Release of Information in the Health Information Management department at [phone] for further assistance in locating additional records.[facility] Allergies Active Allergy Reactions Severity Noted Date Comments Clarithromycin RASH Medium 08/18/2015 Patient reports she was on Clarithro, tetracycline, flagyl for infectious colitis >1 year prior and developed a rash. Usure which antibiotic was the cause. Metronidazole RASH Medium 08/18/2015 Patient reports she was on Clarithro, tetracycline, flagyl for infectious colitis >1 year prior and developed a rash. Usure which antibiotic was the cause. Tetracycline RASH Medium 08/18/2015 Patient reports she was on Clarithro, tetracycline, flagyl for infectious colitis >1 year prior and developed a rash. Usure which antibiotic was the cause. Triamcinolone RASH Medium 10/21/2015 Piperacillin-Tazobactam RASH Medium 09/13/2015 Pt developed a diffuse morbilliform rash on [...] mouth at 30 Tab 0 10/10/19 Active tabletIndications: bedtime as needed for 16 INSOMNIA Nausea. Indications: INSOMNIA prochlorperazine maleate Take 1 [...] Tab 0 10/10/19 Active (ALDACTONE) 25 mg daily. Indications: 16 tabletIndications: CHRONIC HEART FAILURE CHRONIC HEART FAILURE micafungin (MYCAMINE) 50 Administer [...] 08/24/2015 AML (acute myelogenous leukemia) ([facility]) 08/18/2015 GERD (gastroesophageal reflux disease) Resolved Problems Problem Noted Date Resolved Date Fever 10/22/2015 11/02/2015 Septic shock ([facility]) 10/22/2015 11/02/2015 Vesicular rash 09/22/2015 10/10/2015 Sepsis ([facility]) 09/21/2015 10/10/2015 Fever and neutropenia ([facility]) 09/07/2015 11/02/2015 Acute respiratory failure with hypoxemia ([facility]) 08/30/2015 10/10/2015 Hypophosphatemia 08/26/2015 10/10/2015 Hypokalemia 08/26/2015 10/10/2015 Dyspnea 08/26/2015 10/10/2015 Peripheral edema 08/21/2015 11/02/2015 SIRS (systemic inflammatory response syndrome) ([facility]) 08/19/2015 10/10/2015 Family History Medical History Relation Name Comments Coronary Artery Disease Brother Diabetes Brother Heart Attack Brother Coronary Artery Disease Father Heart Attack Father Cataract Mother Coronary Artery Disease Mother Hypertension Mother Cataract Sister Multiple sclerosis Sister Relation Name Status Comments Brother Father Mother Sister Social History Tobacco Use Types Packs/Day Years Used Date Never Smoker Alcohol Use Drinks/Week oz/Week Comments No 0 Standard 0.0 drinks or equivalent Sex Assigned at Date Recorded Not on file Last Filed Vital Signs Vital Sign Reading Time Taken Blood Pressure 114/67 11/02/2015 11:29 AM CDT Pulse 95 11/02/2015 11:29 AM CDT Temperature 36.7 C (98 F) 11/02/2015 11:29 AM CDT Respiratory Rate 17 09/19/2015 11:33 AM CDT Oxygen Saturation 99% 11/02/2015 11:29 AM CDT Inhaled Oxygen - - Concentration Weight 78.9 kg (174 lb) 11/02/2015 3:23 AM CDT Height 167.6 cm (5' 6") 10/31/2015 9:22 AM CDT Body Mass Index 28.08 11/02/2015 3:23 AM CDT Plan of Treatment Health Maintenance Due Date Last Done Comments HEPATITIS C SCREENING 1955 PHYSICAL (COMPREHENSIVE) 07/16/1962 EXAM PERTUSSIS VACCINE 07/16/1966 TETANUS VACCINE 07/16/1972 CERVICAL CANCER SCREENING 07/16/1985 BREAST CANCER SCREENING 1995 COLORECTAL CANCER 07/16/2005 SCREENING SHINGLES VACCINE 2015 INFLUENZA VACCINE 10/19/2016 Results Not on filefrom Last 3 Months
[2016-09-30] MEDS ORDERED: HYDR-3812 PO (08:51)
[2016-09-30 08:55] LABS: MEAN CORPUSCULAR HEMOGLOBIN 31 PG (25-34); MEAN CORPUSCULAR HGB CONC 33 G/DL (32-36); MEAN CORPUSCULAR VOLUME 94 FL (80-99); PLATELET COUNT 64 10^3/uL (130-400); RED BLOOD COUNT 3.94 10^6/uL (4.35-5.85); RED CELL DISTRIBUTION WIDTH 20.1 % (10.0-14.5)
[2016-09-30 09:01] LABS: WHITE BLOOD COUNT 139.2 10^3/uL (4.3-11.0)
[2016-09-30 09:14] LABS: BILIRUBIN,TOTAL 1.1 MG/DL (0.1-1.0); CALCIUM 9.6 MG/DL (8.5-10.1); CREATININE SERUM 1.45 MG/DL (0.60-1.30); MAGNESIUM 2.1 MG/DL (1.8-2.4); TOTAL PROTEIN 7.1 GM/DL (6.4-8.2)
[2016-09-30 09:29] LABS: POTASSIUM 4.8 MMOL/L (3.6-5.0)
--- NOTE | 2016-09-30 09:30 | Diagnostic Imaging Report ---
INDICATION: Leg swelling, chemotherapy COMPARISON: 08/21/16 FINDINGS: Single view of the chest demonstrates stable cardiac enlargement. Lungs are clear. There is no pneumothorax. Osseous structures normal. No effusion seen. IMPRESSION: Cardiac enlargement without pulmonary edema or infiltrate Dictated by: Dictated on workstation # [id number]
[2016-09-30] MEDS: fentaNYL INJECTION 100 MCG/2 ML AMP IVP PRN ×3 (10:24→23:18)
[2016-09-30] MEDS ORDERED: NS IV 1000 ML 1,000 ML IV ONE (10:27)
--- NOTE | 2016-09-30 10:28 | Diagnostic Imaging Report ---
INDICATION: Lower extremity swelling and pain. COMPARISON: None. FINDINGS: There is extensive bilateral deep vein thrombosis extending from the common femoral veins into the deep calf veins. No mass identified. IMPRESSION: Extensive bilateral deep vein thrombosis. Dictated by: Dictated on workstation # [id number]
[2016-09-30 11:32] LABS: INR 1.6 (0.8-1.4)
[2016-09-30] MEDS ORDERED: HEParin DRIP 25000 UNIT/500ML 500 ML IV ONE (11:34)
[2016-09-30] MEDS ORDERED: HEParin 1000 UNIT/ML (10ML VIAL) FOR BOLUS IV ONE (11:34)
--- NOTE | 2016-09-30 11:47 | ED General ---
General Chief Complaint: Lower Extremity Stated Complaint: EDEMA Nursing Triage Note: ARRIVED VIA AMBULANCE TO ROOM 07. COMPLAINS OF BILAT LOWER LEG EDEMA SINCE HAVING A VENA FILTER PUT IN LAST SAT. PT WAS TAKEN OFF OF XELRELTO AT THIS TIME. PT WAS IN REMISSION FOR AML BUT HER LABS WERE OFF AND SHE HAD TO RESTART 5 DAYS OF TREATMENT RECENTLY ALSO. PT STATES SHE CAN NO LONGER WALK DUE TO WEAKNESS AND EDEMA. Nursing Sepsis Screen: No Definite Risk Source of Information: Patient Exam Limitations: No Limitations History of Present Illness Time Seen by Provider: 08:45 Initial Comments Here with complaint of bilateral leg swelling and pain. Has history of acute myelogenous leukemia and just underwent chemotherapy. She had to stop her leg thinner Xarelto due to low platelet count. She did have refilled filter placed last week. States that she can't walk because her legs are too heavy and she is unable to get the strength to stand. Denies fever or chills. Denies nausea or vomiting. Here by EMS. Timing/Duration: 12-24 Hours Severity: Moderate Modifying Factors: worse with Movement, improves with Rest Associated Systoms: No Chest Pain, No Cough, No Fever/Chills, No Loss of Appetite, No Nausea/Vomiting, No Shortness of Air, Weakness Allergies and Home Medications Allergies Coded Allergies: clarithromycin (Verified Allergy, Severe, HIVES, 01/12/16) tetracycline (Verified Allergy, Severe, HIVES, 01/12/16) triamcinolone (Verified Allergy, Unknown, 01/12/16) worsened rash Home Medications Carvedilol 3.125 Mg Tablet, 3.125 MG PO BID, (Reported) Eszopiclone 1 Mg Tablet, 1 MG PO HS PRN for SLEEP, (Reported) Fluconazole 200 Mg Tablet, 200 MG PO DAILY, (Reported) FILLED 09/24/16 #7 FOR A 7 DAY THERAPY Furosemide 40 Mg Tablet, 40 MG PO DAILY, (Reported) Hydrocodone/Acetaminophen 1 Each Tablet, #180 (Reported) Lorazepam 0.5 Mg Tablet, 0.5 MG PO BID PRN for ANXIETY, (Reported) Lorazepam 0.5 Mg Tablet, 0.5-1 MG PO HS PRN for ANXIETY, (Reported) TAKES 1-2 OF A (0.5 MG) TABLET Losartan Potassium 25 Mg Tablet, 25 MG PO DAILY, (Reported) Pantoprazole Sodium 40 Mg Tablet.dr, 40 MG PO DAILY, (Reported) Potassium Chloride 20 Meq Tab.er.prt, 40 MEQ PO DAILY, (Reported) TAKES 2 (20 MEQ) TABLETS Rivaroxaban 20 Mg Tablet, 20 MG PO HS, (Reported) Constitutional: see HPI, No chills, No fever EENTM: no symptoms reported Respiratory: no symptoms reported Cardiovascular: no symptoms reported Gastrointestinal: No nausea, No vomiting Genitourinary: no symptoms reported Musculoskeletal: see HPI, back pain, muscle pain, muscle stiffness, muscle weakness Skin: no symptoms reported Psychiatric/Neurological: No Symptoms Reported All Other Systems Reviewed Negative Unless Noted: Yes Past Cnmsonn-Ffrsqd-Ksgmpn Hx Patient Social History Alcohol Use: Denies Use Recreational Drug Use: No Smoking Status: Never a Smoker Recent Foreign Travel: No Contact w/Someone Who Travel: No Recent Infectious Disease Expo: No Recent Hopitalizations: No Immunizations Up To Date Tetanus Booster (TDap): Unknown PED Vaccines UTD: Yes Date of Influenza Vaccine: Nov 19, 2015 Seasonal Allergies Seasonal Allergies: No Surgeries HX Surgeries: Yes Surgeries: Hysterectomy, Oophorectomy Respiratory Hx Respiratory Disorders: No Respiratory Disorders: Pneumonia Cardiovascular Hx Cardiac Disorders: Yes (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) Cardiac Disorders: Cardiomyopathy, Deep Vein Thrombosis Neurological Hx Neurological Disorders: No Reproductive System Hx Reproductive Disorders: No Sexually Transmitted Disease: No HIV/AIDS: No Female Reproductive Disorders: Ovarian Cyst Genitourinary Hx Genitourinary Disorders: No Gastrointestinal Hx Gastrointestinal Disorders: Yes Gastrointestinal Disorders: C-Diff Musculoskeletal Hx Musculoskeletal Disorders: No Endocrine Hx Endocrine Disorders: No HEENT HX ENT Disorders: No Loss of Vision: Denies Hearing Impairment: Denies Cancer Hx Cancer: Yes (AML--DX 08/18/15) Cancer: Leukemia Psychosocial Hx Psychiatric Problems: Yes Behavioral Health Disorders: Sleep Difficulties, Anxiety, Depression Integumentary HX Skin/Integumentary Disorder: Yes Skin/Integumentary Disorders: Pruritis Blood Transfusions Hx Blood Disorders: No Adverse Reaction to a Blood Tr: No Reviewed Nursing Assessment Reviewed/Agree w Nursing PMH: Yes Family Medical History Significant Family History: Heart Disease Family Medial History: CARDIOVASCULAR DISEASE 19 FATHER G8 BROTHER G8 BROTHER G8 BROTHER Cardiovascular disease 19 MOTHER Cataracts 19 MOTHER G8 SISTER Diabetes mellitus G8 BROTHER Hypertension 19 MOTHER MULTIPLE SCLEROSIS G8 SISTER Myocardial infarction 19 FATHER G8 BROTHER G8 BROTHER Physical Exam Vital Signs Vital Sign - Last 12Hours 09/30/16 08:36 Temp 97.5 Pulse 93 Resp 18 B/P (MAP) 96/68 Pulse Ox 96 Capillary Refill : Less Than 3 Seconds General Appearance: No Apparent Distress, WD/WN HEENT: PERRL/EOMI, Pharynx Normal Neck: Non Tender, Supple Respiratory: Lungs Clear, Normal Breath Sounds Cardiovascular: Regular Rate, Rhythm, No Murmur Gastrointestinal: Non Tender, Soft Back: Normal Inspection, No CVA Tenderness, No Vertebral Tenderness Extremity: Calf Tenderness, Pedal Edema, Swelling (bilateral lower extremity swollen and red. To the level above the knee.) Neurologic/Psychiatric: Alert, Oriented x3, Normal Mood/Affect Skin: Warm/Dry, Erythema (as described above.) Progress/Results/Core Measures Results/Orders Lab Results Laboratory Tests Test 09/30/16 08:45 Range/Units White Blood Count 139.2 *H 4.3-11.0 10^3/uL Red Blood Count 3.94 L 4.35-5.85 10^6/uL Hemoglobin 12.2 11.5-16.0 G/DL Hematocrit 37 35-52 % Mean Corpuscular Volume 94 80-99 FL Mean Corpuscular Hemoglobin 31 25-34 PG Mean Corpuscular Hemoglobin Concent 33 32-36 G/DL Red Cell Distribution Width 20.1 H 10.0-14.5 % Platelet Count 64 L 130-400 10^3/uL Mean Platelet Volume 7.4-10.4 FL Neutrophils (%) (Auto) 42-75 % Lymphocytes (%) (Auto) 12-44 % Monocytes (%) (Auto) 0-12 % Eosinophils (%) (Auto) 0-10 % Basophils (%) (Auto) 0-10 % Neutrophils # (Auto) 1.8-7.8 X 10^3 Lymphocytes # (Auto) 1.0-4.0 X 10^3 Monocytes # (Auto) 0.0-1.0 X 10^3 Eosinophils # (Auto) 0.0-0.3 10^3/uL Basophils # (Auto) 0.0-0.1 10^3/uL Prothrombin Time 19.0 H 12.2-14.7 SEC INR Comment 1.6 H 0.8-1.4 Activated Partial Thromboplast Time 27 24-35 SEC Sodium Level 133 L 135-145 MMOL/L Potassium Level 4.8 3.6-5.0 MMOL/L Chloride Level 100 98-107 MMOL/L Carbon Dioxide Level 15 L 21-32 MMOL/L Anion Gap 18 H 5-14 MMOL/L Blood Urea Nitrogen 47 H 7-18 MG/DL Creatinine 1.45 H 0.60-1.30 MG/DL Estimat Glomerular Filtration Rate 37 BUN/Creatinine Ratio 32 Glucose Level 188 H 70-105 MG/DL Calcium Level 9.6 8.5-10.1 MG/DL Magnesium Level 2.1 1.8-2.4 MG/DL Total Bilirubin 1.1 H 0.1-1.0 MG/DL Aspartate Amino Transf (AST/SGOT) 46 H 5-34 U/L Alanine Aminotransferase (ALT/SGPT) 51 0-55 U/L Alkaline Phosphatase 127 40-136 U/L B-Type Natriuretic Peptide 2272.2 H <100.0 PG/ML Total Protein 7.1 6.4-8.2 GM/DL Albumin 4.0 3.2-4.5 GM/DL Smear Scan YES My Orders Orders - TERRELL BRAMBILA MD Venous Lower Ext Meliza (09/30/16 08:48) BNP (09/30/16 08:48) Cbc With Automated Diff (09/30/16 08:48) Comprehensive Metabolic Panel (09/30/16 08:48) Magnesium (09/30/16 08:48) Saline Lock/Iv-Start (09/30/16 08:48) Ekg Tracing (09/30/16 08:48) Monitor-Rhythm Ecg Trace Only (09/30/16 08:48) Chest 1 View, Ap/Pa Only (09/30/16 08:48) Fentanyl Injection (Sublimaze Injection (09/30/16 10:30) Saline Lock/Iv-Start (09/30/16 10:27) Ns Iv 1000 Ml (Sodium Chloride 0.9%) (09/30/16 10:27) Protime With Inr (09/30/16 11:24) Partial Thromboplastin Time (09/30/16 11:24) Heparin Drip 37272 Unit/500ml (Heparin (09/30/16 11:34) Heparin (Bolus Per Protocol) (Heparin (B (09/30/16 11:34) Medications Given in ED Current Medications Medications Dose Ordered Sig/Abbey Route Start Time Stop Time Status Last Admin Dose Admin Fentanyl Citrate 50 mcg Q1H PRN IVP 09/30/16 10:30 09/30/16 10:24 50 MCG Sodium Chloride 1,000 ml @ 0 mls/hr Q0M ONCE IV 09/30/16 10:27 09/30/16 10:28 DC 09/30/16 10:31 1,000 MLS/HR Vital Signs/I&O Vital Sign - Last 12Hours 09/30/16 08:36 Temp 97.5 Pulse 93 Resp 18 B/P (MAP) 96/68 Pulse Ox 96 Blood Pressure Mean: 77 Progress Note : Progress Note Seen and evaluated on arrival by EMS. IV by EMS. Second IV line initiated due to the need for blood draw. Labs and chest x-ray ordered. EKG ordered. Monitor patient. 1119 Patient reporting some back pain. Fentanyl 50 g IV. Blood pressure also noted to be declining somewhat. She does have concerning findings for possibility of congestive heart failure but will require fluids. This was initiated. I did discuss the case with Dr. Dennis. Patient has grossly elevated white blood cell count at 139,000 in the setting of AML. Platelets are 61. She is off anticoagulants currently. Patient does not want to seek further chemotherapy but is unable to walk. She would like to pursue hospice at home but is not in a position to go home right now. Due to findings and concerns, Dr. Conroy has agreed to accept patient for admission to the hospital, inpatient status and we will initiate heparin drip with the plan of potentially converting to oral agents for comfort and pursue hospice consult. Palliative consult placed by me. Orders written with above information in mind her Dr. Dennis. Findings, concerns in prognosis discussed with patient and family who agree. Patient is DO NOT RESUSCITATE. ECG Initial ECG Impression Date: Sep 30, 2016 Initial ECG Impression Time: 08:59 Initial ECG Rate: 91 Initial ECG Rhythm: Normal Sinus Comment Sinus rhythm with left bundle branch block. Leftward axis. Similar to previous of July 04. No evidence of ST elevation [place]. Interpreted by me. Diagnostic Imaging Diagonstic Imaging: Xray Plain Films/CT/US/NM/MRI: chest Comments NAME: RICHARD YOUNG Devin MED REC#: [id number] PT STATUS: REG ER : 1955 PHYSICIAN: TERRELL BRAMBILA MD ADMIT DATE: 09/30/16/ER Signed Date of Exam: 09/30/16 CHEST 1 VIEW, AP/PA ONLY INDICATION: Leg swelling, chemotherapy COMPARISON: 08/21/16 FINDINGS: Single view of the chest demonstrates stable cardiac enlargement. Lungs are clear. There is no pneumothorax. Osseous structures normal. No effusion seen. IMPRESSION: Cardiac enlargement without pulmonary edema or infiltrate Dictated by: Dictated on workstation # [id number] Dict: 09/30/16 0926 Trans: 09/30/16 1141 Interpreted by: SHAUNA SOLORZANO Electronically signed by: SHAUNA SOLORZANO 09/30/16 1141 Diagonstic Imaging: Ultrasound Plain Films/CT/US/NM/MRI: leg Comments NAME: RICHARD YOUNG [facility] REC#: [id number] PT STATUS: REG ER : 1955 PHYSICIAN: TERRELL BRAMBILA MD ADMIT DATE: 09/30/16/ER Signed Date of Exam: 09/30/16 US VENOUS LOWER EXT MELIZA INDICATION: Lower extremity swelling and pain. COMPARISON: None. FINDINGS: There is extensive bilateral deep vein thrombosis extending from the common femoral veins into the deep calf veins. No mass identified. IMPRESSION: Extensive bilateral deep vein thrombosis. Dictated by: Dictated on workstation # [id number] Dict: 09/30/16 1023 Trans: 09/30/16 1141 Interpreted by: SHAUNA SOLORZANO Electronically signed by: SHAUNA SOLORZANO 09/30/16 1141 Departure Communication Time/Spoke to Admitting Phy: 11:19 Impression Impression: Primary Impression: Acute myelogenous leukemia Qualified Codes: C92.02 - Acute myeloblastic leukemia, in relapse Additional Impression: DVT, bilateral lower limbs Qualified Codes: I82.403 - Acute embolism and thrombosis of unspecified deep veins of lower extremity, bilateral Disposition: ADMITTED INPATIENT Condition: Stable Admissions Decision to Admit Reason: Admit from ER (General) Decision to Admit/Date: Sep 30, 2016 Time/Decision to Admit Time: 11:19 Departure-Patient Inst. Referrals: WHITNEY NIELSON MD (PCP/Family) Primary Care Physician TERRELL BRAMBILA MD Sep 30, 2016 11:47
--- OUTSIDE RECORDS SUMMARY | 2016-09-30 11:59 | XMS REPORT | Clinical Summary ---
Author Author [facility] Organization [facility] Address Unknown Phone Unavailable Care Team Providers Care Extractor Plant Operator Name Role Phone PCP Unavailable Source Comments Some departments are not documenting in the electronic medical record. If you do not see the information that you expected, contact Release of Information in the Health Information Management department at [phone] for further assistance in locating additional records.[facility] Allergies Active Allergy Reactions Severity Noted Date [...] 08/24/2015 AML (acute myelogenous leukemia) ([facility]) 08/18/2015 GERD (gastroesophageal reflux disease) Resolved Problems Problem Noted Date Resolved Date Fever 10/22/2015 11/02/2015 Septic shock ([facility]) 10/22/2015 11/02/2015 Vesicular rash 09/22/2015 10/10/2015 Sepsis ([facility]) 09/21/2015 10/10/2015 Fever and neutropenia ([facility]) 09/07/2015 11/02/2015 Acute respiratory failure with hypoxemia ([facility]) 08/30/2015 10/10/2015 Hypophosphatemia 08/26/2015 10/10/2015 Hypokalemia 08/26/2015 10/10/2015 Dyspnea 08/26/2015 10/10/2015 Peripheral edema 08/21/2015 11/02/2015 SIRS (systemic inflammatory response syndrome) ([facility]) 08/19/2015 10/10/2015 Family History Medical [...]
[2016-09-30 12:55] VITALS: BP 85/61
[2016-09-30] MEDS ORDERED: HEPARIN DRIP SCH (14:45)
[2016-09-30] MEDS ORDERED: [UNRECOGNIZED DRUG - OTHER] SCH (14:45)
[2016-09-30] MEDS: PANTOPRAZOLE 40 MG (PROTONIX) TAB PO SCH (14:56)
[2016-09-30] MEDS: HEParin DRIP 25000 UNIT/500ML 500 ML IV SCH (15:25)
--- NOTE | 2016-09-30 15:27 | HISTORY AND PHYSICAL ---
DATE OF SERVICE: ROOM NUMBER: The patient is admitted to room 421. PRESENTING COMPLAINT: 1. Increased swelling and discomfort in bilateral lower extremities. 2. Acute leukemia. HISTORY OF PRESENT ILLNESS: The patient is a 61-year-old female diagnosed with acute myeloid leukemia in 07/2015. She underwent induction chemotherapy at [facility], but did not acquire a complete remission. She suffered from cardiomyopathy due to the anthracycline treatment and has been on palliative chemo with Dacogen. She had numerous complications because of cytopenias and three separate episodes of sepsis with the last treatment in January 2016. Her blood counts stabilized and she has done well until 08/2016 when she was noted to have rapidly increasing white blood cell count and declining platelet count. She was diagnosed with recurrent acute myeloid leukemia and underwent chemotherapy with Dacogen daily x5 last week and completed the treatments on Saturday. 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 This was stopped last week and patient underwent an IVC filter placement on Saturday. Since then she has been complaining of increased swelling of bilateral lower extremities and discomfort and inability to walk. She was brought to the emergency room by her family today and had venous Doppler studies, which showed extensive bilateral DVT. She is being admitted to the hospital for further management. PAST MEDICAL HISTORY: Significant for acute myeloid leukemia diagnosed in July 2015 as mentioned above. She has had cardiomyopathy and congestive heart failure because of the anthracycline treatment with the left ventricular ejection fraction ranging in the 15% to 30% range. She has had 3 episodes of sepsis in late 2015 due to the cytopenias and treatment for acute leukemia. She has not had major medical problems prior to the diagnosis of acute leukemia. PAST SURGICAL HISTORY: Include TAHBSO in the distant past. SOCIAL HISTORY: Patient is and lives with her in [place], [place]. They have 1 daughter who lives in [place], [place], and a granddaughter who was born in 03/2016. No history of tobacco, alcohol, or other recreational drug use. FAMILY HISTORY: Noncontributory and unremarkable. PHYSICAL EXAMINATION: GENERAL: Physical examination today showed an elderly female, weak appearing, awake and oriented in mild discomfort due to the lower extremity swelling and back pain. VITAL SIGNS: Her temperature was 98.6, pulse rate of 86, respirations 18, blood pressure 85/61 with pulse oximetry of 98% on room air. HEENT: Normocephalic. Extraocular muscles are intact. Conjunctivae are pink. Oral mucosa is moist without lesions. NECK: Supple with no JVD. No cervical, supraclavicular, or axillary lymphadenopathy palpable. CHEST: Symmetrical. LUNGS: Fairly clear to auscultation without wheezes or rales. CARDIOVASCULAR: Regular in rate and rhythm without murmurs or gallops. ABDOMEN: Soft, nontender with no hepatosplenomegaly or other masses palpable. EXTREMITIES: Showed 3+ edema of bilateral lower extremities. NEUROLOGIC: Showed motor strength with 3 to 4/5 in bilateral lower extremities and 4/5 in bilateral upper extremities. LABORATORY DATA: CBC done today at the emergency room showed white blood cell count of 139.2, hemoglobin 12.2, and platelet count of 64,000. Manual differential count is pending. Chemistry panel showed sodium level of 133 and CO2 of 15. BUN was 47 and creatinine 1.45 with GFR of 37 mL per minute. Nonfasting glucose was 188. Total bilirubin was 1.1 and AST 46 with the rest of the liver function studies normal. BNP was elevated at 2272.2. Protime was 19 with an INR of 1.6 and PTT of 27. RADIOGRAPH DATA: Chest x-ray done at the emergency room showed cardiac enlargement without pulmonary edema or infiltrates. Bilateral lower extremity Doppler studies showed extensive bilateral deep vein thrombosis extending from the common femoral veins into the deep calf veins. No masses identified. IMPRESSION/RECOMMENDATIONS: 1. Extensive bilateral deep venous thrombosis and previous history of deep venous thrombosis. 2. I will start the patient on low dose heparin infusion and monitor her blood count serially because of the thrombocytopenia. 3. If her platelet counts are stable or improving, I will restart her on oral anticoagulation. 4. Acute myeloid leukemia with progressive disease. Patient completed chemotherapy with Dacogen for 5 days on 09/28/2016. If her blood counts are worsening, patient wants to continue with the supportive care with hospice as she knows the prognosis is poor. 5. I will maintain her as do not resuscitate during the hospital stay. 6. I will obtain palliative care consult and based on her blood counts over the next 24 to 48 hours, we will consider further plans. 7. Overall prognosis is poor. I will hold her cardiac medications because of hypotension but will reintroduce them if she starts feeling better and the blood pressure is improving. Job ID: [id number] DocumentID: [id number] Dictated Date: 09/30/2016 13:33:31 Environmental Coordinator Date: 09/30/2016 15:26:37 Dictated By: BELLA SUTTON MD MTDD
[2016-09-30 16:00] VITALS: BP 84/52
[2016-09-30] MEDS ORDERED: BISA5TAB8 PO (17:14)
[2016-09-30 19:15] VITALS: BP 96/68
[2016-09-30] MEDS ORDERED: ACETAMINOPHEN 325 MG TABLET/CAPLET (TYLENOL) PO PRN (22:00)
[2016-10-01] VITALS: BP_SYST 93; BP_SYST 96; BP_DIAS 62
[2016-10-01] MEDS ORDERED: ONDANSETRON 4 MG/2 ML (SDV) Z0FRAN IVP PRN (00:15)
[2016-10-01 04:00] VITALS: BP 92/62
[2016-10-01] MEDS: PANTOPRAZOLE 40 MG (PROTONIX) TAB PO SCH (06:35)
[2016-10-01 06:44] LABS: MEAN CORPUSCULAR HEMOGLOBIN 31 PG (25-34); MEAN CORPUSCULAR HGB CONC 33 G/DL (32-36); MEAN CORPUSCULAR VOLUME 93 FL (80-99); MEAN PLATELET VOLUME 9.5 FL (7.4-10.4); RED BLOOD COUNT 3.43 10^6/uL (4.35-5.85); RED CELL DISTRIBUTION WIDTH 19.6 % (10.0-14.5)
[2016-10-01 07:10] LABS: WHITE BLOOD COUNT 137.2 10^3/uL (4.3-11.0)
[2016-10-01 07:11] LABS: PLATELET COUNT 22 10^3/uL (130-400)
[2016-10-01 07:12] LABS: ALANINE AMINOTRANSFERASE 38 U/L (0-55); ALBUMIN 3.4 GM/DL (3.2-4.5); ANION GAP 10 MMOL/L (5-14); ASPARTATE AMINO TRANSFERASE 36 U/L (5-34); BILIRUBIN,TOTAL 0.8 MG/DL (0.1-1.0); BLOOD UREA NITROGEN 6 MG/DL (7-18); BUN/CREATININE RATIO 9; CALCIUM 8.6 MG/DL (8.5-10.1); CARBON DIOXIDE 23 MMOL/L (21-32); CHLORIDE 104 MMOL/L (98-107); CREATININE SERUM 0.65 MG/DL (0.60-1.30); GFR ESTIMATED > 60; GLUCOSE 132 MG/DL (70-105); POTASSIUM 3.8 MMOL/L (3.6-5.0); SODIUM 137 MMOL/L (135-145); TOTAL PROTEIN 5.9 GM/DL (6.4-8.2)
[2016-10-01 08:00] VITALS: BP 87/55
[2016-10-01] MEDS: fentaNYL INJECTION 100 MCG/2 ML AMP IVP PRN ×3 (10:17→21:20)
[2016-10-01 12:00] VITALS: BP 93/56
[2016-10-01] MEDS: PROCHLORPERAZINE 10 MG/2ML INJ (COMPAZINE) IV PRN ×2 (13:34→19:05)
[2016-10-01] MEDS: HEParin DRIP 25000 UNIT/500ML 500 ML IV SCH (14:26)
[2016-10-01 16:35] VITALS: BP 103/68
[2016-10-01] MEDS ORDERED: NON-FORMULARY MEDICATION 1 EA EA (Eszopiclone 1 MG) PO PRN (17:15)
[2016-10-01] MEDS ORDERED: RX-HYDROCODONE/APAP 5/325 MG #4 TAB PK PO PRN (17:15)
[2016-10-01] MEDS ORDERED: LORazepam 0.5 MG (ATIVAN) TABLET PO PRN ×3 (17:15→17:30)
--- NOTE | 2016-10-01 17:25 | Progress Note-Standard ---
Standard Progress Note Progress Notes/Assess & Plan Date Seen by Provider: Oct 01, 2016 Time Seen by Provider: 17:17 Progress/Assessment & Plan 61-year-old female with recurrent acute myeloid leukemia who completed chemotherapy with Dacogen 5 days last week. Admitted with increasing bilateral lower extremity swelling and pain and found to have extensive bilateral lower extremity DVT. Started on low-dose heparin drip with improvement in lower extremity swelling and pain. Complained of nausea today which is controlled with Compazine. Bruises easily but no significant bleeding. Vital Sign - Last 12Hours Date Time Temp Pulse Resp B/P (MAP) Pulse Ox O2 Delivery O2 Flow Rate FiO2 10/01/16 16:35 99.1 104 18 103/68 93 Room Air Physical examination today showed an elderly female, weak-appearing, awake and oriented and in no acute distress. HEENT normocephalic, extraocular muscles intact, conjunctivae pink, oral mucosa moist. Neck was supple with no JVD. Lungs fairly clear to auscultation without wheezes or rales. Cardiovascular exam was borderline tachycardic, regular without murmurs or gallops. Abdomen was soft and benign. Extremities showed ecchymosis in the right antecubital fossa. No petechiae noted. Laboratory Tests 10/01/16 06:25 A/P: 1. Recurrent acute myeloid leukemia, status post chemotherapy with Dacogen 5 days completed last week. Patient is unsure if she will continue chemotherapy or not and has talked to hospice today. 2. Bilateral lower extremity DVT and pain, currently on low-dose heparin with improvement in symptoms. I will add Eliquis 2.5 mg twice a day starting this evening and will discontinue heparin tomorrow morning. 3. Thrombocytopenia due to chemotherapy and recurrent AML. Continue to monitor closely and transfuse as needed. 4. Cardiomyopathy due to cardiotoxic chemotherapy with ejection fraction in the 15 percent range per patient and family. Continue Coreg but will hold Lasix and losartan because of hypotension. 5. Her overall prognosis is poor. Continue DO NOT RESUSCITATE status. We will discuss with hospice about discharge planning. BELLA SUTTON Oct 01, 2016 17:25
[2016-10-01] MEDS ORDERED: ZOLPIDEM 5 MG (AMBIEN) TAB PO PRN (17:45)
[2016-10-01] MEDS ORDERED: HYDROcodone/APAP 5 MG/325 MG (LORTAB) TAB PO PRN (17:45)
[2016-10-01] MEDS: APIXABAN 2.5 MG (ELIQUIS) TABLET PO SCH (21:08)
[2016-10-01] MEDS: CARVEDILOL 3.125 MG (COREG) TABLET PO SCH (21:08)
[2016-10-02] VITALS: BP 91/60
[2016-10-02] MEDS: fentaNYL INJECTION 100 MCG/2 ML AMP IVP PRN ×2 (00:43→07:39)
[2016-10-02] MEDS: PROCHLORPERAZINE 10 MG/2ML INJ (COMPAZINE) IV PRN ×2 (04:10→11:47)
[2016-10-02] MEDS: PANTOPRAZOLE 40 MG (PROTONIX) TAB PO SCH (06:00)
[2016-10-02 07:22] LABS: MEAN CORPUSCULAR HEMOGLOBIN 31 PG (25-34); MEAN CORPUSCULAR HGB CONC 32 G/DL (32-36); MEAN CORPUSCULAR VOLUME 96 FL (80-99); MEAN PLATELET VOLUME 8.7 FL (7.4-10.4); RED BLOOD COUNT 2.82 10^6/uL (4.35-5.85); RED CELL DISTRIBUTION WIDTH 19.6 % (10.0-14.5)
[2016-10-02 07:25] LABS: WHITE BLOOD COUNT 132.3 10^3/uL (4.3-11.0)
[2016-10-02 07:26] LABS: PLATELET COUNT 21 10^3/uL (130-400)
[2016-10-02 07:39] LABS: ANION GAP 10 MMOL/L (5-14); BLOOD UREA NITROGEN 36 MG/DL (7-18); BUN/CREATININE RATIO 42; CALCIUM 8.6 MG/DL (8.5-10.1); CARBON DIOXIDE 21 MMOL/L (21-32); CHLORIDE 98 MMOL/L (98-107); CREATININE SERUM 0.85 MG/DL (0.60-1.30); GFR ESTIMATED > 60; GLUCOSE 122 MG/DL (70-105); POTASSIUM 4.6 MMOL/L (3.6-5.0); SODIUM 129 MMOL/L (135-145)
[2016-10-02 08:00] VITALS: BP_SYST 93; BP_SYST 94; BP_DIAS 56; BP_DIAS 64
[2016-10-02] MEDS ORDERED: PANTOPRAZOLE 40 MG (PROTONIX) TAB PO SCH (09:00)
[2016-10-02] MEDS: CARVEDILOL 3.125 MG (COREG) TABLET PO SCH ×2 (09:22→21:01)
[2016-10-02] MEDS: APIXABAN 2.5 MG (ELIQUIS) TABLET PO SCH ×2 (09:22→21:00)
--- NOTE | 2016-10-02 11:32 | Progress Note-Standard ---
Standard Progress Note Progress Notes/Assess & Plan Date Seen by Provider: Oct 02, 2016 Time Seen by Provider: 11:24 Progress/Assessment & Plan 61-year-old female with recurrent acute myeloid leukemia who completed chemotherapy with Dacogen 5 days last week. Admitted with increasing bilateral lower extremity swelling and pain and found to have extensive bilateral lower extremity DVT. Started on low-dose heparin drip with improvement. Started on Eliquis 2.5 mg po twice daily last evening. Will stop heparin drip today. Bruises easily but no significant bleeding. Vital Sign - Last 12Hours Date Time Temp Pulse Resp B/P (MAP) Pulse Ox O2 Delivery O2 Flow Rate FiO2 10/02/16 00:00 96.6 96 16 91/60 95 Room Air Physical examination today showed an elderly female, weak-appearing, awake and oriented and in no acute distress. HEENT normocephalic, extraocular muscles intact, conjunctivae pink, oral mucosa moist. Neck was supple with no JVD. Lungs fairly clear to auscultation without wheezes or rales. Cardiovascular exam was borderline tachycardic, regular without murmurs or gallops. Abdomen was soft and benign. Extremities showed ecchymosis in the right antecubital fossa. No petechiae noted. Lower extremity 1-2 + edema. Laboratory Tests 10/02/16 07:14 A/P: 1. Recurrent acute myeloid leukemia, status post chemotherapy with Dacogen 5 days completed last week. Patient has decided to discontinue chemotherapy and has decided to go home with hospice. 2. Bilateral lower extremity DVT and pain, currently on low-dose heparin with improvement in symptoms. Continue Eliquis 2.5 mg twice a day and discontinue heparin today. 3. Thrombocytopenia due to chemotherapy and recurrent AML. Continue to monitor closely and transfuse as needed. 4. Cardiomyopathy due to cardiotoxic chemotherapy with ejection fraction in the 15 percent range per patient and family. Continue Coreg but will hold Lasix and losartan because of hypotension. 5. Back and lower extremity discomfort. Will d/c IV Fentanyl and start on morphine ER at 15 mg po bid with hydrocodone/ APAP for breakthrough. 6. Her overall prognosis is poor. Continue DO NOT RESUSCITATE status. Home with hospice tomorrow. BELLA SUTTON Oct 02, 2016 11:32
[2016-10-02] MEDS: morphine ER 15 MG (MS CONTIN) TAB PO SCH ×2 (13:06→21:01)
[2016-10-02 16:00] VITALS: BP 88/51
[2016-10-02 21:00] VITALS: BP 92/64
[2016-10-02 23:40] VITALS: BP 88/55
[2016-10-03] MEDS: PROCHLORPERAZINE 10 MG/2ML INJ (COMPAZINE) IV PRN (03:55)
[2016-10-03 05:05] LABS: MEAN CORPUSCULAR HEMOGLOBIN 31 PG (25-34); MEAN CORPUSCULAR HGB CONC 33 G/DL (32-36); MEAN CORPUSCULAR VOLUME 94 FL (80-99); MEAN PLATELET VOLUME 10.2 FL (7.4-10.4); RED BLOOD COUNT 2.66 10^6/uL (4.35-5.85); RED CELL DISTRIBUTION WIDTH 19.3 % (10.0-14.5)
[2016-10-03 05:25] LABS: CALCIUM 8.8 MG/DL (8.5-10.1); CREATININE SERUM 1.1 MG/DL (0.60-1.30)
[2016-10-03 05:27] LABS: PLATELET COUNT 23 10^3/uL (130-400); WHITE BLOOD COUNT 141.2 10^3/uL (4.3-11.0)
[2016-10-03] MEDS: PANTOPRAZOLE 40 MG (PROTONIX) TAB PO SCH (06:50)
[2016-10-03 08:17] VITALS: BP 95/65
[2016-10-03] MEDS: morphine ER 15 MG (MS CONTIN) TAB PO SCH (08:51)
[2016-10-03] MEDS: CARVEDILOL 3.125 MG (COREG) TABLET PO SCH (08:51)
[2016-10-03] MEDS: APIXABAN 2.5 MG (ELIQUIS) TABLET PO SCH (08:51)
[2016-10-03] MEDS ORDERED: MORP15TA69 PO (14:21)
[2016-10-03] MEDS ORDERED: APIX2.5T PO (14:32)
[2016-10-03 15:25] VITALS: BP 95/65
--- NOTE | 2016-10-03 18:07 | DISCHARGE SUMMARY ---
DATE OF SERVICE: 10/03/2016 FINAL DIAGNOSIS: 1. Recurrent acute myeloid leukemia. 2. Leukocytosis and thrombocytopenia due to above. 3. Bilateral lower extremity DVT. 4. Cardiomyopathy with a history of congestive heart failure. BRIEF HISTORY: The patient is a 61-year-old female with history of recurrent acute myeloid leukemia who was treated with a course of Dacogen on an outpatient basis. She had previous history of DVT and was on oral anticoagulation which was stopped because of thrombocytopenia. She also had an inferior vena cava filter placed. The patient developed significant bilateral lower extremity edema and pain and was brought to the emergency room. She was found to have extensive bilateral lower extremity DVT accounting for the pain and the edema. She was started on low dose heparin infusion, which maintained her PTT 2-3 times normal range, and the patient had significant improvement within the 1st 24 hours. Her blood counts were monitored and she had leukocytosis with a white blood cell count in the 130-140,000 range during her hospital stay. platelet counts were in the 20,000 range and except for slight increased bruising, she did not have any actual bleeding. Per patient request, she was made a DNR. The patient had decided not to proceed with further chemotherapy and wanted to go home with hospice. cargo services coordinator consults were obtained, who contacted hospice and appropriate arrangements were made. She was started on Eliquis 2.5 mg b.i.d. and 12 hours later the heparin drip was discontinued. She was started on MS Contin 15 mg b.i.d. with hydrocodone for breakthrough pain and on 10/03/2016, hospice had made all the arrangements at home for the patient to be discharged home with hospice. Hence, she is being discharged today. Her discharge medications include MS Contin 15 mg p.o. b.i.d. with hydrocodone 5/325 one tablet every 4 hours as needed for breakthrough pain. She will be on Protonix 40 mg daily, carvedilol 3.125 mg p.o. b.i.d., Lasix 40 mg daily as needed for fluid retention and shortness of breath. She will be on Ativan as needed for anxiety. Several of her other home medications were discontinued. The patient understands that she is terminal and will continue to be DNR. Her overall prognosis is poor. Job ID: [id number] DocumentID: [id number] Dictated Date: 10/03/2016 14:29:18 Painter And Body Work Date: 10/03/2016 16:23:14 Dictated By: BELLA SUTTON MD
== END 2016-10-03 14:40 | disposition hospice, home (50) | DRG 300 ==
LOC: EDUNIT# 08:36 → ER 08:38 → 4TH 11:54
PROVIDERS: ADMIT Internal Medicine Hematology & Oncology; ATTEND Internal Medicine Hematology & Oncology
DX: I82.413 Acute embolism and thrombosis of femoral vein, bilateral (principal); I82.4Z3 Acute embolism and thrombosis of unspecified deep veins of distal lower extremity, bilateral; C92.02 Acute myeloblastic leukemia, in relapse; I42.7 Cardiomyopathy due to drug and external agent; T45.1X5A Adverse effect of antineoplastic and immunosuppressive drugs, initial encounter; D69.59 Other secondary thrombocytopenia; I50.9 Heart failure, unspecified; F41.9 Anxiety disorder, unspecified; F32.9 Major depressive disorder, single episode, unspecified; Z66 Do not resuscitate; M54.9 Dorsalgia, unspecified
CPT/HCPCS: 36415; 71010; 80048; 80053; 83735; 83880; 85025; 85610; 85730; 93005; 93970; 96361; 96365; 96375